=== PATIENT | female | born 1955 | race Caucasian/White ===

== ENCOUNTER 2017-08-20 22:52 | Emergency (ER) | payer MEDICARE, MEDICAID ==
[2017-08-20] MEDS ORDERED: Sodium Chloride 0.9% 1,000 ML IV ONE (23:22)
[2017-08-20] MEDS ORDERED: Ondansetron 4 MG/2 ML SDV IVPUSH ONE (23:22)
[2017-08-20] MEDS ORDERED: Ketorolac 30 MG/ML SDV IVPUSH ONE (23:22)
--- NOTE | 2017-08-20 23:25 | EDM.PDOC ---
ED HPI GENERAL MEDICAL PROBLEM - General Chief Complaint: Headache Stated Complaint: HEADACHE Time Seen by Provider: 08/20/17 23:24 Source of Information: Reports: Patient - History of Present Illness INITIAL COMMENTS - FREE TEXT/NARRATIVE: HISTORY AND PHYSICAL: History of present illness: []Patient presents with headache that has waxed and waned for 5 days currently rates 2 out of 10 but it increases to a 5 out of 10 maximally, she states she is under a lot of stress as she is now caring for her mother who has early Alzheimer's type dementia she feels this may contribute. I can reproduce some symptoms with palpation of trapezius distribution left greater than right no associated fever nausea vomiting diarrhea constipation chest pain shortness breath dizziness or palpitation no bowel or urine symptoms Review of systems: As per history of present illness and below otherwise all systems reviewed and negative. Past medical history: As per history of present illness and as reviewed below otherwise noncontributory. Surgical history: As per history of present illness and as reviewed below otherwise noncontributory. Social history: No reported history of drug or alcohol abuse. Family history: As per history of present illness and as reviewed below otherwise noncontributory. Physical exam: HEENT: Atraumatic, normocephalic, pupils reactive, negative for conjunctival pallor or scleral icterus, mucous membranes moist, throat clear, neck supple, nontender, trachea midline. Lungs: Clear to auscultation, breath sounds equal bilaterally, chest nontender. Heart: S1S2, regular, negative for clicks, rubs, or JVD. Abdomen: Soft, nondistended, nontender. Negative for masses or hepatosplenomegaly. Negative for costovertebral tenderness. Pelvis: Stable nontender. Genitourinary: Deferred. Rectal: Deferred. Extremities: Atraumatic, negative for cords or calf pain. Neurovascular unremarkable. Neuro: Awake, alert, oriented. Cranial nerves II through XII unremarkable. Cerebellum unremarkable. Motor and sensory unremarkable throughout. Exam nonfocal. Musculoskeletal reproducible muscle spasm and bilateral trapezius distribution left greater than right otherwise unremarkable Diagnostics: []CBC, CMP, UA, ESR Head CT no contrast Therapeutics: []Liter normal saline bolus Zofran 8 mg IV Toradol 30 mg IV Fioricet 1-2 tabs by mouth every 6 when necessary #30 no refill Impression: []Tension Headache Muscle spasm trapezius distribution Definitive disposition and diagnosis as appropriate pending reevaluation and review of above. 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: Psychiatric History: Reports: Anxiety Social & Family History - Family History Family Medical History: Noncontributory - Tobacco Use Smoking Status *Q: Current Every Day Smoker Years of Tobacco use: 40 Packs/Tins Daily: 1 - Caffeine Use Caffeine Use: Reports: Coffee, Soda Caffeine Use Comment: 1/2 cup daily - Recreational Drug Use Recreational Drug Use: No ED ROS GENERAL - Review of Systems Review Of Systems: See Below ED EXAM, GENERAL - Physical Exam Exam: See Below Course - Vital Signs Last Recorded V/S: Last Vital Signs Temp 36.4 C 08/20/17 22:52 Pulse 71 08/20/17 22:52 Resp 18 08/20/17 22:52 BP 163/108 H 08/20/17 22:52 Pulse Ox 100 08/20/17 22:52 - Orders/Labs/Meds Orders: Active Orders 24 hr Category Date Time Status Head wo Cont [CT] Stat Exams 08/20/17 23:24 Taken Labs: Laboratory Tests 08/21/17 08/21/17 08/21/17 Range/Units 00:01 00:09 00:09 WBC 5.60 (4.0-11.0) K/uL RBC 4.00 L (4.30-5.90) M/uL Hgb 12.7 (12.0-16.0) g/dL Hct 37.8 (36.0-46.0) % MCV 94.5 (80.0-98.0) fL MCH 31.8 (27.0-32.0) pg MCHC 33.6 (31.0-37.0) g/dL RDW Std Deviation 41.2 (28.0-62.0) fl RDW Coeff of Ayb 12 (11.0-15.0) % Plt Count 312 (150-400) K/uL MPV 9.30 (7.40-12.00) fL Neut % (Auto) 62.1 (48.0-80.0) % Lymph % (Auto) 26.6 (16.0-40.0) % [place] % (Auto) 9.5 (0.0-15.0) % Eos % (Auto) 1.6 (0.0-7.0) % Baso % (Auto) 0.2 (0.0-1.5) % Neut # (Auto) 3.5 (1.4-5.7) K/uL Lymph # (Auto) 1.5 (0.6-2.4) K/uL [place] # (Auto) 0.5 (0.0-0.8) K/uL Eos # (Auto) 0.1 (0.0-0.7) K/uL Baso # (Auto) 0.0 (0.0-0.1) K/uL ESR (0-29) mm/hr Sodium 142 (136-146) mmol/L Potassium 3.7 (3.5-5.1) mmol/L Chloride 107 (98-110) mmol/L Carbon Dioxide 24 (21-31) mmol/L BUN 14 (6.0-23.0) mg/dL Creatinine 0.8 (0.6-1.5) mg/dL Est Cr Clr Drug Dosing 70.90 mL/min Estimated GFR (MDRD) > 60.0 ml/min Glucose 80 (60-110) mg/dL Calcium 9.8 (8.8-10.8) mg/dL Total Bilirubin 0.3 (0.1-1.5) mg/dL AST 18 (5-40) IU/L ALT 14 (8-54) IU/L Alkaline Phosphatase 104 (40-150) Total Protein 8.0 (6.0-8.0) g/dL Albumin 4.5 (3.4-4.8) g/dL Globulin 3.5 (2.0-3.5) g/dL Albumin/Globulin Ratio 1.3 (1.3-2.8) Urine Color YELLOW Urine Appearance CLEAR Urine pH 5.5 (5.0-8.0) Ur Specific [place] <= 1.005 (1.001-1.035) Urine Protein NEGATIVE (NEGATIVE) mg/dL Urine Glucose (UA) NEGATIVE (NEGATIVE) mg/dL Urine Ketones NEGATIVE (NEGATIVE) mg/dL Urine Occult Blood NEGATIVE (NEGATIVE) Urine Nitrite NEGATIVE (NEGATIVE) Urine Bilirubin NEGATIVE (NEGATIVE) Urine Urobilinogen 0.2 (<2.0) EU/dL Ur Leukocyte Esterase NEGATIVE (NEGATIVE) Urine RBC 0-1 (0-2/HPF) Urine WBC 0-2 (0-5/HPF) Ur Epithelial Cells RARE (NONE-FEW) Urine Bacteria RARE (NEGATIVE) 08/21/17 Range/Units 00:09 WBC (4.0-11.0) K/uL RBC (4.30-5.90) M/uL Hgb (12.0-16.0) g/dL Hct (36.0-46.0) % MCV (80.0-98.0) fL MCH (27.0-32.0) pg MCHC (31.0-37.0) g/dL RDW Std Deviation (28.0-62.0) fl RDW Coeff of Aby (11.0-15.0) % Plt Count (150-400) K/uL MPV (7.40-12.00) fL Neut % (Auto) (48.0-80.0) % Lymph % (Auto) (16.0-40.0) % [place] % (Auto) (0.0-15.0) % Eos % (Auto) (0.0-7.0) % Baso % (Auto) (0.0-1.5) % Neut # (Auto) (1.4-5.7) K/uL Lymph # (Auto) (0.6-2.4) K/uL [place] # (Auto) (0.0-0.8) K/uL Eos # (Auto) (0.0-0.7) K/uL Baso # (Auto) (0.0-0.1) K/uL ESR 29 (0-29) mm/hr Sodium (136-146) mmol/L Potassium (3.5-5.1) mmol/L Chloride (98-110) mmol/L Carbon Dioxide (21-31) mmol/L BUN (6.0-23.0) mg/dL Creatinine (0.6-1.5) mg/dL Est Cr Clr Drug Dosing mL/min Estimated GFR (MDRD) ml/min Glucose (60-110) mg/dL Calcium (8.8-10.8) mg/dL Total Bilirubin (0.1-1.5) mg/dL AST (5-40) IU/L ALT (8-54) IU/L Alkaline Phosphatase (40-150) Total Protein (6.0-8.0) g/dL Albumin (3.4-4.8) g/dL Globulin (2.0-3.5) g/dL Albumin/Globulin Ratio (1.3-2.8) Urine Color Urine Appearance Urine pH (5.0-8.0) Ur Specific [place] (1.001-1.035) Urine Protein (NEGATIVE) mg/dL Urine Glucose (UA) (NEGATIVE) mg/dL Urine Ketones (NEGATIVE) mg/dL Urine Occult Blood (NEGATIVE) Urine Nitrite (NEGATIVE) Urine Bilirubin (NEGATIVE) Urine Urobilinogen (<2.0) EU/dL Ur Leukocyte Esterase (NEGATIVE) Urine RBC (0-2/HPF) Urine WBC (0-5/HPF) Ur Epithelial Cells (NONE-FEW) Urine Bacteria (NEGATIVE) Meds: Medications Discontinued Medications Generic Name Dose Route Start Last Admin Trade Name Freq PRN Reason Stop Dose Admin Sodium Chloride 1,000 mls @ 999 mls/hr 08/20/17 23:22 08/21/17 00:11 Normal Saline IV 08/21/17 00:22 999 mls/hr STAT ONE Administration Ketorolac Tromethamine 30 mg 08/20/17 23:22 08/21/17 00:12 Toradol IVPUSH 08/20/17 23:23 30 mg ONETIME ONE Administration Ondansetron HCl 8 mg 08/20/17 23:22 08/21/17 00:12 Zofran IVPUSH 08/20/17 23:23 8 mg ONETIME ONE Administration Departure - Departure Time of Disposition: 00:48 Disposition: Home, Self-Care 01 Condition: Good Clinical Impression: Tension-type headache - Discharge Information Referrals: PCP,None [Primary Care Provider] - Forms: ED Department Discharge Additional Instructions: Medication as prescribed Return if symptoms persist or worsen Follow-up with primary care in 2 weeks sooner as needed The following information is given to patients seen in the emergency department who are being discharged to home. This information is to outline your options for follow-up care. We provide all patients seen in our emergency department with a follow-up referral. The need for follow-up, as well as the timing and circumstances, are variable depending upon the specifics of your emergency department visit. If you don't have a primary care physician on staff, we will provide you with a referral. We always advise you to contact your personal physician following an emergency department visit to inform them of the circumstance of the visit and for follow-up with them and/or the need for any referrals to a consulting specialist. The emergency department will also refer you to a specialist when appropriate. This referral assures that you have the opportunity for follow-up care with a specialist. All of these measure are taken in an effort to provide you with optimal care, which includes your follow-up. Under all circumstances we always encourage you to contact your private physician who remains a resource for coordinating your care. When calling for follow-up care, please make the office aware that this follow-up is from your recent emergency room visit. If for any reason you are refused follow-up, please contact the [facility] emergency department at and asked to speak to the emergency department charge nurse. - My Orders Last 24 Hours: My Active Orders 08/20/17 23:24 Head wo Cont [CT] Stat - Assessment/Plan Last 24 Hours: My Active Orders 08/20/17 23:24 Head wo Cont [CT] Stat
[2017-08-21 00:37] LABS: CHLORIDE,CL 107 mmol/L (98-110); SODIUM,NA 142 mmol/L (136-146)
[2017-08-21 01:18] VITALS: BP 139/85
--- NOTE | 2017-08-22 18:12 | CT ---
EXAM DATE: 08/20/17 PATIENT'S AGE: 62 Patient: PARESH BUSCH Facility: [place], [place] Site . Site : 1955 Study: CT Head [id number] 11:59:10 PM Ordering Physician: Chad Blackwell Final Report: INDICATION: headache TECHNIQUE: CT Head without i.v. contrast. COMPARISON: None FINDINGS: CSF spaces: Within normal limits for age. Brain parenchyma: The brain parenchyma is normal in appearance with preservation of the leary-white matter junction. No sign of mass, hemorrhage, or midline shift. Skull base and calvarium: The visualized paranasal sinuses are well aerated. The mastoid air cells are clear. The visualized orbits are grossly unremarkable. No skull fractures are seen. IMPRESSION: 1. No CT evidence of acute infarct, hemorrhage, or mass effect seen. Dictated by: Laith Pierre MD @ 08/21/2017 00:06:55 (Electronic Signature) Report Signed by Proxy. ELMIRA
== END 2017-08-21 01:13 | disposition home or self-care (01) ==
LOC: MW.ED 22:52
DX: G44.209 Tension-type headache, unspecified, not intractable (principal); M62.838 Other muscle spasm; I10 Essential (primary) hypertension; F41.9 Anxiety disorder, unspecified; F17.210 Nicotine dependence, cigarettes, uncomplicated; Z79.899 Other long term (current) drug therapy
CPT/HCPCS: 70450; 80053; 81001; 85025; 85652; 96361; 96374; 96375; 99284; J1885; J2405; J7040; 99283

== ENCOUNTER 2021-07-27 13:26 | Emergency (ER) | payer MEDICAID, MEDICARE ==
[2021-07-27 15:15] VITALS: BP 145/91; PULSE 74
[2021-07-27 17:23] LABS: BLOOD UREA NITROGEN,BUN 14 mg/dL (7.0-18.0); CARBON DIOXIDE,CO2 30.7 mmol/L (21.0-32.0); CHLORIDE,CL 101 mmol/L (98-107); GLUCOSE RANDOM 89 mg/dL (74-106); POTASSIUM,K 4.3 mmol/L (3.5-5.1); SODIUM,NA 139 mmol/L (136-145)
--- NOTE | 2021-07-27 17:42 | CR ---
Indication: Chest pain and shortness of breath Technique: Chest 2 views Comparison: None Findings: Cardiovascular and mediastinum: Mild cardiomegaly. Normal pulmonary vasculature. Lungs and pleural spaces: Lungs are clear. No sign of infiltrate or mass. No sign of pleural effusion. No pneumothorax. Bones and soft tissues: No significant findings. Impression: Mild cardiomegaly without further evidence of heart failure or other acute abnormality to explain chest pain or shortness of breath. Dictated by Davey Trinh MD @ 07/27/2021 5:40:[address] Davey Trinh @ Jul 27 2021 5:40PM
--- NOTE | 2021-07-27 18:43 | EDM.PDOC ---
ED HPI GENERAL MEDICAL PROBLEM - General Chief Complaint: Respiratory Problem Stated Complaint: BODY ACHES, COVID SYMPTOMS Time Seen by Provider: 07/27/21 16:07 Source of Information: Reports: Patient History Limitations: Reports: No Limitations - History of Present Illness INITIAL COMMENTS - FREE TEXT/NARRATIVE: HISTORY AND PHYSICAL: History of present illness: Patient is a 66-year-old female who presents emergency room today with concern of possible COVID-19 infection as she has been having a stuffy/runny nose and cough for the past 5 days. Patient states that initially started as a stuffy/runny nose and states that she has developed a "junky cough "now over the past 3 to 4 days. Patient states that she was talking to a friend about it who stated she might have COVID-19 so patient decided to come the emergency room for further evaluation. Patient denies any associated short of breath but states that she has had some generalized body aches. Patient states that she has a history of rheumatoid arthritis and states that she has body aches at baseline so has had a hard time differentiating this. Patient denies any other symptoms or concerns. Patient denies fever, chills, chest pain, shortness of breath, or cough. Denies headache, neck stiff ness, change in vision, syncope, or near syncope. Denies nausea, vomiting, abdominal pain, diarrhea, constipation, or dysuria. Has not noted any blood in urine or stool. Patient has been eating and drinking appropriately. Review of systems: As per history of present illness and below otherwise all systems reviewed and negative. Past medical history: As per history of present illness and as reviewed below otherwise noncontributory. Surgical history: As per history of present illness and as reviewed below otherwise noncontributory. Social history: See social history for further information Family history: As per history of present illness and as reviewed below otherwise noncontributory. Physical exam: General: Patient is alert, oriented, and in no acute distress. Patient sitting comfortably on exam table. Vitals stable and reviewed by me. HEENT: Bilateral nasal congestion/runny nose. Otherwise, atraumatic, normocephalic, pupils equal and reactive bilaterally, negative for conjunctival pallor or scleral icterus, mucous membranes moist, TMs normal bilaterally, throat clear, neck supple, nontender, trachea midline. No drooling or trismus noted. No meningeal signs. No hot potato voice noted. Lungs: Clear to auscultation, breath sounds equal bilaterally, chest nontender. Wet cough noted on exam. Heart: S1S2, regular rate and rhythm without overt murmur Abdomen: Soft, nondistended, nontender. Negative for masses or hepatosplenomegaly. Negative for costovertebral tenderness. Pelvis: Stable nontender. Genitourinary: Deferred. Rectal: Deferred. Skin: Intact, warm, dry. No lesions or rashes noted. Extremities: Atraumatic, negative for cords or calf pain. Neurovascular unremarkable. Neuro: Awake, alert, oriented. Cranial nerves II through XII unremarkable. Cerebellum unremarkable. Motor and sensory unremarkable throughout. Exam nonfocal. Notes: Patient is a 66-year-old female who presents emergency room today with concern of nasal congestion, generalized body aches, and cough over the past 5 days. Upon arrival to the ED, patient does have bilateral nasal congestion and runny nose on exam with a wet cough. Will obtain COVID-19/influenza as well as basic lab work and chest x-ray. Mild derangements of CBC unremarkable. CMP show an isolated elevation of alk phos at 133 which nonspecific in isolation, otherwise mild derangements of CMP unremarkable. COVID-19 is negative. Influenza is negative. Chest x-ray shows mild cardiomegaly without further evidence of heart failure or other acute abnormality to explain chest pain or shortness of breath. (Will obtain BNP) BNP mildly elevated at 137. Upon reevaluation of patient, she remains vitally stable and comfortable thr oughout stay in ED. Reexamination of patient shows no bilateral lower extremity edema or orthopnea/JVD. I did discuss with patient the possibility of new onset/early congestive heart failure and did offer admission for observation / complete cardiac evaluation (EKG/Trop) but patient declines stating she is eager to leave the ED as she has been here for quite some time. All risks versus benefits discussed with patient and expresses understanding. Discussed importance for follow-up with a primary care provider/industrial order clerk. Strict return precautions thoroughly discussed with patient. Voices understanding and is agreeable to plan of care. Denies any further questions or concerns at this time. Diagnostics: COVID/Flu, CBC, CMP, CXR, BNP Therapeutics: None Prescription: None Impression: Cough Viral syndrome Mild cardiomegaly on chest x-ray Plan: 1. You can alternate ibuprofen and Tylenol as directed for pain and discomfort. 2. Use [id number] cough drops as directed and as discussed for symptomatic relief. 3. Follow-up with a primary care provider and industrial order clerk as discussed. Return to the ED as needed and as discussed. Definitive disposition and diagnosis as appropriate pending reevaluation and review of above. Location: Reports: Pelvis general Pain Score (Numeric/FACES): 10 - Related Data Allergies Allergy/AdvReac Type Severity Reaction Status Date / Time No Known Allergies Allergy Verified 08/20/17 22:57 Home Meds: Home Meds Venlafaxine [Effexor XR] 225 mg PO DAILY 08/20/17 [History] amLODIPine [Norvasc] 0 mg PO DAILY 08/20/17 [History] Furosemide 10 mg PO DAILY 07/27/21 [History] Past Medical History - Past Health History Medical/Surgical History: Denies Medical/Surgical History HEENT History: Reports: Impaired Vision Other HEENT History: wears glasses Cardiovascular History: Reports: Hypertension [employer]ST[employer]ER History: Reports: Psychiatric History: Reports: Anxiety - Infectious Disease History Infectious Disease History: Reports: Chicken Pox Social & Family History - Family History Family Medical History: No Pertinent Family History - Caffeine Use Caffeine Use: Reports: Coffee, Soda Caffeine Use Comment: 1/2 cup daily - Recreational Drug Use Recreational Drug Type: Reports: Marijuana/Hashish ED ROS GENERAL - Review of Systems Review Of Systems: Comprehensive ROS is negative, except as noted in HPI. ED EXAM, GENERAL - Physical Exam Exam: See Below (see dictation) Course - Vital Signs Last Recorded V/S: Last Vital Signs Temp 98.4 F 07/27/21 15:05 Pulse 74 07/27/21 15:05 Resp 20 07/27/21 15:17 BP 145/91 H 07/27/21 15:05 Pulse Ox 92 L 07/27/21 15:05 - Orders/Labs/Meds Labs: Laboratory Tests 07/27/21 07/27/21 07/27/21 Range/Units 14:55 15:02 16:55 WBC 6.53 (4.0-11.0) K/uL RBC 4.14 L (4.30-5.90) M/uL Hgb 12.4 (12.0-16.0) g/dL Hct 36.9 (36.0-46.0) % MCV 89.1 (80.0-98.0) fL MCH 30.0 (27.0-32.0) pg MCHC 33.6 (31.0-37.0) g/dL RDW Std Deviation 39.8 (28.0-62.0) fl RDW Coeff of [place] 12 (11.0-15.0) % Plt Count 366 (150-400) K/uL MPV 9.40 (7.40-12.00) fL Neut % (Auto) 64.1 (48.0-80.0) % Lymph % (Auto) 25.0 (16.0-40.0) % [place] % (Auto) 8.6 (0.0-15.0) % Eos % (Auto) 2.0 (0.0-7.0) % Baso % (Auto) 0.3 (0.0-1.5) % Neut # (Auto) 4.2 (1.4-5.7) K/uL Lymph # (Auto) 1.6 (0.6-2.4) K/uL [place] # (Auto) 0.6 (0.0-0.8) K/uL Eos # (Auto) 0.1 (0.0-0.7) K/uL Baso # (Auto) 0.0 (0.0-0.1) K/uL Nucleated RBC % 0.0 /100WBC Nucleated RBCs # 0 K/uL Sodium (136-145) mmol/L Potassium (3.5-5.1) mmol/L Chloride (98-107) mmol/L Carbon Dioxide (21.0-32.0) mmol/L BUN (7.0-18.0) mg/dL Creatinine (0.6-1.0) mg/dL Est Cr Clr Drug Dosing Estimated GFR (MDRD) ml/min Glucose (74-106) mg/dL Calcium (8.5-10.1) mg/dL Total Bilirubin (0.2-1.0) mg/dL AST (15-37) IU/L ALT (14-63) IU/L Alkaline Phosphatase (46-116) U/L B-Natriuretic Peptide 137 H (<100) PG/ML Total Protein (6.4-8.2) g/dL Albumin (3.4-5.0) g/dL Globulin (2.6-4.0) g/dL Albumin/Globulin Ratio (0.9-1.6) SARS-CoV-2 RNA (GEOVANNI) NEGATIVE (NEGATIVE) 07/27/21 Range/Units 16:55 WBC (4.0-11.0) K/uL RBC (4.30-5.90) M/uL Hgb (12.0-16.0) g/dL Hct (36.0-46.0) % MCV (80.0-98.0) fL MCH (27.0-32.0) pg MCHC (31.0-37.0) g/dL RDW Std Deviation (28.0-62.0) fl RDW Coeff of Aby (11.0-15.0) % Plt Count (150-400) K/uL MPV (7.40-12.00) fL Neut % (Auto) (48.0-80.0) % Lymph % (Auto) (16.0-40.0) % [place] % (Auto) (0.0-15.0) % Eos % (Auto) (0.0-7.0) % Baso % (Auto) (0.0-1.5) % Neut # (Auto) (1.4-5.7) K/uL Lymph # (Auto) (0.6-2.4) K/uL [place] # (Auto) (0.0-0.8) K/uL Eos # (Auto) (0.0-0.7) K/uL Baso # (Auto) (0.0-0.1) K/uL Nucleated RBC % /100WBC Nucleated RBCs # K/uL Sodium 139 (136-145) mmol/L Potassium 4.3 (3.5-5.1) mmol/L Chloride 101 (98-107) mmol/L Carbon Dioxide 30.7 (21.0-32.0) mmol/L BUN 14 (7.0-18.0) mg/dL Creatinine 0.8 (0.6-1.0) mg/dL Est Cr Clr Drug Dosing TNP Estimated GFR (MDRD) > 60.0 ml/min Glucose 89 (74-106) mg/dL Calcium 8.9 (8.5-10.1) mg/dL Total Bilirubin 0.3 (0.2-1.0) mg/dL AST 15 (15-37) IU/L ALT 18 (14-63) IU/L Alkaline Phosphatase 133 H (46-116) U/L B-Natriuretic Peptide (<100) PG/ML Total Protein 8.0 (6.4-8.2) g/dL Albumin 3.7 (3.4-5.0) g/dL Globulin 4.3 H (2.6-4.0) g/dL Albumin/Globulin Ratio 0.9 (0.9-1.6) SARS-CoV-2 RNA (GEOVANNI) (NEGATIVE) Departure - Departure Time of Disposition: 18:42 Disposition: Home, Self-Care 01 Clinical Impression: Cough, Viral syndrome, Mild cardiomegaly - Discharge Information Instructions: Cough, Adult, [id number] Referrals: Sade He DO [Primary Care Provider] - Forms: ED Department Discharge Additional Instructions: The following information is given to patients seen in the emergency department who are being discharged to home. This information is to outline your options for follow-up care. We provide all patients seen in our emergency department with a follow-up referral. The need for follow-up, as well as the timing and circumstances, are variable depending upon the specifics of your emergency department visit. If you don't have a primary care physician on staff, we will provide you with a referral. We always advise you to contact your personal physician following an emergency department visit to inform them of the circumstance of the visit and for follow-up with them and/or the need for any referrals to a consulting specialist. The emergency department will also refer you to a specialist when appropriate. This referral assures that you have the opportunity for follow-up care with a specialist. All of these measure are taken in an effort to provide you with optimal care, which includes your follow-up. Under all circumstances we always encourage you to contact your private physician who remains a resource for coordinating your care. When calling for follow-up care, please make the office aware that this follow-up is from your recent emergency room visit. If for any reason you are refused follow-up, please contact the [facility] Emergency Department at and asked to speak to the emergency department charge nurse. YOSEPH [facility] Primary Care / Cardiology [address] [place] [address] [facility] [address] [place] [id number] 1. You can alternate ibuprofen and Tylenol as directed for pain and discomfort. 2. Use [id number] cough drops as directed and as discussed for symptomatic relief. 3. Follow-up with a primary care provider and industrial order clerk as discussed. Return to the ED as needed and as discussed. Sepsis Event Note (ED) - Evaluation Sepsis Screening Result: No Definite Risk - Focused Exam Vital Signs: Vital Signs Temp Pulse Resp BP Pulse Ox 07/27/21 15:17 20 07/27/21 15:05 98.4 F 74 20 145/91 H 92 L
== END 2021-07-27 19:01 | disposition home or self-care (01) ==
LOC: MW.ED 13:26
DX: B34.9 Viral infection, unspecified (principal); I51.7 Cardiomegaly; I10 Essential (primary) hypertension; Z79.899 Other long term (current) drug therapy; Z20.822 Contact with and (suspected) exposure to COVID-19
CPT/HCPCS: 36415; 71046; 80053; 83880; 85025; 87804; 99283; U0002

== ENCOUNTER 2021-07-31 20:11 | Emergency (ER) | payer MEDICARE ==
[2021-07-31 23:12] VITALS: PULSE 68
--- NOTE | 2021-07-31 23:41 | EDM.PDOC ---
ED HPI GENERAL MEDICAL PROBLEM - General Chief Complaint: General Stated Complaint: WAS TOLD TO COME IN BY HER DR Time Seen by Provider: 07/31/21 23:13 - History of Present Illness INITIAL COMMENTS - FREE TEXT/NARRATIVE: HISTORY AND PHYSICAL: History of present illness: This is a 66-year-old female who presents ER today secondary to a flareup of her rheumatoid arthritis all throughout her body. Patient reports that the pain is greatest in her right knee where her right knee is swollen. She reports that she spoke to her doctor and her doctor had her come back to the ED for an ultrasound. Patient denies any recent fevers, shakes, chills, nausea, vomiting, diarrhea, dysuria, frequency, urgency, chest pain, shortness of breath. Patient reports that she used to be on methotrexate however she stopped it approximately 1 1/2 years ago and was doing well up until 3 weeks ago when she started experiencing body aches and joint pain throughout her joints. She reports that she does care for her 9-month-old granddaughter and thinks that that might of exacerbated things. Patient was seen and evaluated here several days ago secondary to concern that she might have Covid however her work-up was negative. Patient denies any swelling to her lower extremity however she does have swelling isolated to her right knee. 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 Patient denies any recent fevers, shakes, chills, nausea, vomiting, diarrhea, dysuria, frequency, urgency, chest pain, shortness of breath, abdominal pain. Review of systems: As per history of present illness and below otherwise all systems reviewed and negative. Past medical history: As per history of present illness and as reviewed below otherwise noncontributory. Surgical history: As per history of present illness and as reviewed below otherwise noncontributory. Social history: No reported history of drug abuse. Family history: As per history of present illness and as reviewed below otherwise noncon tributory. Physical exam: This patient was seen and evaluated during the 2019 SARS-CoV-2 novel coronavirus pandemic period. Community viral transmission is ongoing at time of this encounter and the emergency department is operating under pandemic response procedures. Constitutional: Patient is oriented to person, place, and time. Appears well- developed and well-nourished. No distress. HEENT: Moist mucous membranes Head: Normocephalic and atraumatic Eyes: Right eye exhibits no discharge. Left eye exhibits no discharge. No scleral icterus Neck: Normal range of motion. No tracheal deviation present. Cardiovascular: Normal rate and regular rhythm. Pulmonary: Effort normal, no respiratory distress. Abdominal: No distention Musculoskeletal: Normal range of motion Neurologic: Alert and oriented to person, place and time. Skin: [place], warm and dry. Psychiatric: Normal mood and affect. Behavior is normal. Judgment and thought content normal. Nursing note and vital signs have been reviewed Patient has tenderness to palpation to her right knee with a right knee joint effusion. Patient does have 2 Lidoderm patches over her knees and she reports that they have not helped her very much. Patient has no calf tenderness, pedal edema, negative Homans' sign. Patient has bounding pulses bilaterally to her DP/PTs. Assessment and plan: 66-year-old female with history significant for rheumatoid arthritis who used to be on methotrexate but has recently stopped it approximately 1/2 years ago and reports she was doing fine. Patient reports approximate 3 weeks ago she started feeling body aches and pain to all her joints consistent with a flareup of her rheumatoid arthritis. Patient reports that for 3 weeks you have been calling the clinic with no answer to get into see her doctor. Patient reports that she does have an appointment on August 06. Patient's ER physical exam today is not consistent with a DVT. I have discussed with her that we do not have access to nonemergent ultrasonography at nights or weekends here at [facility] and I do not think that her symptoms would warrant initiating anticoagulation therapy prior to further evaluation. I have recommended that she follow-up with her doctor to see if her doctor would want to order it as an outpatient for her or she may return to the ED Tuesday through 08-02 for a nonemergent ultrasound. It appears that the patient symptoms are most consistent with a flareup of her rheumatoid arthritis. I will start the patient on NSAIDs as well as Ultram to assist her with her pain and discomfort. Reassessment at the time of disposition demonstrates that the patient is in no acute distress. The patient has remained stable throughout the entire ED visit and is without objective evidence for acute process requiring urgent intervention or hospitalization. The patient is stable for discharge, counseling is provided as documented above, discussed symptomatic treatment and specific conditions for return. I have spoken with the patient/caregiver and discussed todays findings, in addition to providing specific details for the plan of care. Questions are answered and there is agreement with the plan. Definitive disposition and diagnosis as appropriate pending reevaluation and review of above. right knee Pain Score (Numeric/FACES): 10 - Related Data Allergies Allergy/AdvReac Type Severity Reaction Status Date / Time No Known Allergies Allergy Verified 07/31/21 23:07 Home Meds: Home Meds Venlafaxine [Effexor XR] 225 mg PO DAILY 08/20/17 [History] amLODIPine [Norvasc] 0 mg PO DAILY 08/20/17 [History] Furosemide 10 mg PO DAILY 07/27/21 [History] Naproxen [Naprosyn] 500 mg PO Q12HR PRN #30 tab 07/31/21 [Rx] atorvaSTATin [Lipitor] 20 mg PO BEDTIME 07/31/21 [History] traMADol [Ultram] 50 mg PO Q6H PRN #12 tab 07/31/21 [Rx] Past Medical History - Past Health History Medical/Surgical History: Denies Medical/Surgical History HEENT History: Reports: Impaired Vision Other HEENT History: wears glasses Cardiovascular History: Reports: High Cholesterol, Hypertension Respiratory History: Reports: None Gastrointestinal History: Reports: None Genitourinary History: Reports: None GARDENER History: Reports: Musculoskeletal History: Reports: None Neurological History: Reports: None Psychiatric History: Reports: Anxiety, Depression Endocrine/Metabolic History: Reports: None Insulin Pump Model and Unit Aid: None Hematologic History: Reports: None Immunologic History: Reports: None Oncologic (Cancer) History: Reports: None Dermatologic History: Reports: None - Infectious Disease History Infectious Disease History: Reports: Chicken Pox - Past Surgical History Head Surgeries/Procedures: Reports: None Social & Family History - Family History Family Medical History: No Pertinent Family History - Caffeine Use Caffeine Use: Reports: Soda Caffeine Use Comment: 1/2 cup daily - Recreational Drug Use Recreational Drug Use: No ED ROS GENERAL - Review of Systems Review Of Systems: See Below ED EXAM, GENERAL - Physical Exam Exam: See Below Course - Vital Signs Last Recorded V/S: Last Vital Signs Temp 97.4 F 07/31/21 23:09 Pulse 68 07/31/21 23:09 Resp 18 07/31/21 23:09 BP 167/97 H 09/03/21 23:09 Pulse Ox 98 07/31/21 23:09 - Orders/Labs/Meds Orders: Active Orders 24 hr Category Date Time Status Knee 3V Rt [CR] Stat Exams 07/31/21 23:23 Stop Req Departure - Departure Time of Disposition: 23:39 Disposition: Home, Self-Care 01 Condition: Good Clinical Impression: Rheumatoid arthritis flare Rheumatoid arthritis Qualifiers: Rheumatoid arthritis location: knee Rheumatoid factor presence: unspecified pr esence Laterality: right Qualified Code(s): M06.9 - Rheumatoid arthritis, unspecified Right knee pain Qualifiers: Chronicity: unspecified Qualified Code(s): M25.561 - Pain in right knee - Discharge Information Instructions: Rheumatoid Arthritis, [id number], Acute Knee Pain, Adult Referrals: PCP,None [Primary Care Provider] - Additional Instructions: You were seen and evaluated in the ER today secondary to pain and swelling to your right knee. This is most likely consistent with flareup of your rheumatoid arthritis. You will get started on Naprosyn as well as Ultram to assist you with your pain and discomfort. Please keep your appointment on August 06 to see your family doctor for further evaluation and management of your pain. The following information is given to patients seen in the emergency department who are being discharged to home. This information is to outline your options for follow-up care. We provide all patients seen in our emergency department with a follow-up referral. The need for follow-up, as well as the timing and circumstances, are variable depending upon the specifics of your emergency department visit. If you don't have a primary care physician on staff, we will provide you with a referral. We always advise you to contact your personal physician following an emergency department visit to inform them of the circumstance of the visit and for follow-up with them and/or the need for any referrals to a consulting specialist. The emergency department will also refer you to a specialist when appropriate. This referral assures that you have the opportunity for follow-up care with a specialist. All of these measure are taken in an effort to provide you with optimal care, which includes your follow-up. Under all circumstances we always encourage you to contact your private physician who remains a resource for coordinating your care. When calling for follow-up care, please make the office aware that this follow-up is from your recent emergency room visit. If for any reason you are refused follow-up, please contact the [facility] Emergency Department at and asked to speak to the emergency department charge nurse. Carlos Kaci [facility] - [facility] [address] [place] [id number] [facility] [address] [place] [id number] Sepsis Event Note (ED) - Focused Exam Vital Signs: Vital Signs Temp Pulse Resp BP Pulse Ox 07/31/21 23:09 97.4 F 68 18 167/97 H 98 - My Orders Last 24 Hours: My Active Orders 07/31/21 23:23 Knee 3V Rt [CR] Stat - Assessment/Plan Last 24 Hours: My Active Orders 07/31/21 23:23 Knee 3V Rt [CR] Stat
[2021-08-01] MEDS ORDERED: Naproxen 500 MG Tab PO ONE (00:17)
[2021-08-01] MEDS ORDERED: traMADol 50 MG Tab PO ONE (00:17)
[2021-08-01 02:31] VITALS: BP 157/89
--- NOTE | 2021-08-04 09:26 | CR ---
EXAM DATE: 07/31/21 PATIENT'S AGE: 66 Patient: PARESH BUSCH Facility: [facility] Site . Site : [id number] Study: XRay-Knee Right -08/01/2021 12:12:45 AM Ordering Physician: Meet Kline Final Report: INDICATION: Pain in knee TECHNIQUE: Knee radiograph 4 views right COMPARISON: None FINDINGS: Bone: No acute fractures or aggressive bone lesions are identified. 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 No significant knee effusion is seen. Soft tissue: Unremarkable. No radiopaque foreign bodies are seen. IMPRESSION: 1. No acute osseous injuries or abnormalities are noted. Dictated by Laith Pierre MD @ 08/01/2021 12:27:10 AM Dictated by: Laith Pierre MD @ 08/01/2021 00:27:15 Signed by: Laith Pierre MD @08/01/2021 12:27:15 AM (Electronic Signature) Report Signed by Proxy. ELMIRA
== END 2021-08-01 00:20 | disposition home or self-care (01) ==
LOC: MW.ED 20:11
DX: M06.9 Rheumatoid arthritis, unspecified (principal); E78.00 Pure hypercholesterolemia, unspecified; I10 Essential (primary) hypertension; Z79.899 Other long term (current) drug therapy
CPT/HCPCS: 73562; 99283; A9270

== ENCOUNTER 2021-09-07 17:10 | Inpatient (IN) | payer MEDICARE ==
--- NOTE | 2021-09-07 17:55 | EDM.PDOC ---
<Librado Smart - Last Filed: 09/07/21 19:09> ED HPI GENERAL MEDICAL PROBLEM - General Chief Complaint: Respiratory Problem Stated Complaint: COVID POS, LOW OXYGEN Time Seen by Provider: 09/07/21 17:36 - History of Present Illness INITIAL COMMENTS - FREE TEXT/NARRATIVE: CHIEF COMPLAINT(S): Fatigue HISTORY OF PRESENT ILLNESS: This is a 66-year-old woman with a past medical history of rheumatoid arthritis and hypertension who comes to the emergency department with a chief complaint of fatigue. The patient states that she was diagnosed with Covid approximately 5 days ago and she comes to the emergency department at the request of her clinic. She states that they sent her here for IV fluids. She states that since being diagnosed with Covid she has had worsening cough and fatigue. She states that she does feel mildly short of breath. She denies any chest pain abdominal pain, nausea or vomiting. She states that she does have decreased appetite. She denies any other symptoms. REVIEW OF SYSTEMS: Constitutional: Positive for fatigue. Denies fever, chills. Eyes: Denies eye pain Ears, Nose, Mouth, & Throat: Denies earache Cardiovascular: Denies chest pain Respiratory: Positive for nonproductive cough. Denies shortness of breath Gastrointestinal: Denies Nausea, vomiting, diarrhea, hematochezia. Genitourinary: Denies hematuria Skin:Denies a rash MSK: Denies joint pain Neurological: Denies blurred vision Psychiatric: Denies depression PAST MEDICAL HISTORY: As per history of present illness and as reviewed below otherwise noncontributory. SURGICAL HISTORY: As per history of present illness and as reviewed below otherwise noncontributory. SOCIAL HISTORY: As per history of present illness and as reviewed below otherwise noncontributory. FAMILY HISTORY: As per history of present illness and as reviewed below otherwise noncontributory. EXAMINATION OF ORGAN SYSTEMS/BODY AREAS: Constitutional: Blood pressure is 137/74, heart rate 88, respiratory rate 20 with an oxygen saturation of 88% on room air. Temperature 36.6. 2 L nasal cannula pulse oximetry was 92 to 93%. General: Middle-aged woman who does not appear to be in acute distress. Psychiatric: Appropriate mood and affect. Eyes: No scleral icterus or conjunctival erythema ENMT: Moist mucous membranes. No pharyngeal erythema Cardiovascular: Regular, rate, and rhythm. No gallops, murmurs, or rubs. Bila teral upper extremity pulses symmetric and intact. No peripheral edema. No JVD. Respiratory: Lungs clear to auscultation bilaterally. No wheezes, rales, or rhonchi. Gastrointestinal: Soft, non-tender, non-distended. Normoactive bowel sounds Genitourinary: No suprapubic tenderness Musculoskeletal: Normal range of motion. Skin: No lesions or abrasions. Neurological: Alert, GCS 15 MEDICAL DECISION MAKING AND COURSE IN THE ED WITH INTERPRETATION/REVIEW OF DIAGNOSTIC STUDIES: This is a 66-year-old woman with a past medical history of rheumatoid arthritis and hypertension who comes to the emergency department with cough, fatigue who is hypoxic on room air who appears to be in no acute distress. At this time we did obtain a screening EKG which did not reveal any acute signs of ischemia but did reveal a right bundle branch block. There are no priors to compare to. Given the hypoxia and right bundle branch block will obtain a CT angiogram of the chest to evaluate for pulmonary embolism. We did place the patient on cardiac monitoring and pulse oximetry. Will obtain labs including CBC, CMP, troponin. Will obtain a chest x-ray. We will provide the patient 1 L of lactated Ringer's bolus. Laboratory: CBC reveals a normocytic anemia with a hemoglobin of 10.8 hematocrit of 33.2. This is decreased from prior on 07/27/2021. CMP is unremarkable. Prior Covid on September 03, 2021 is positive. On reevaluation patient continues remain comfortable. The patient states that she has not been having any bloody bowel movements or black bowel movements. Patient was signed out to [facility] night team physician pending further labs and work-up and final disposition. DISPOSITION: Patient was signed out to [facility] night team physician pending further labs and final disposition CONDITION: Fair PROCEDURES: Cardiac monitoring interpretation, pulse oximetry interpretation FINAL IMPRESSION(S)/DIAGNOSES: 1. Acute hypoxic respiratory failure requiring nasal cannula secondary to COVID-19 2. Acute normocytic anemia Librado Smart M.D. Generalized Pain Score (Numeric/FACES): 8 - Related Data Allergies Allergy/AdvReac Type Severity Reaction Status Date / Time No Known Allergies Allergy Verified 09/07/21 17:24 Home Meds: Home Meds Venlafaxine [Effexor XR] 225 mg PO DAILY 08/20/17 [History] amLODIPine [Norvasc] 0 mg PO DAILY 08/20/17 [History] Furosemide 10 mg PO DAILY 07/27/21 [History] Past Medical History - Past Health History Medical/Surgical History: Denies Medical/Surgical History HEENT History: Reports: Impaired Vision Other HEENT History: wears glasses Cardiovascular History: Reports: High Cholesterol, Hypertension Respiratory History: Reports: None Gastrointestinal History: Reports: None Genitourinary History: Reports: None PROFESSOR OF FORESTRY History: Reports: Musculoskeletal History: Reports: None Neurological History: Reports: None Psychiatric History: Reports: Anxiety, Depression Endocrine/Metabolic History: Reports: None Insulin Pump Model and Radiographer Technologist: None Hematologic History: Reports: None Immunologic History: Reports: None Oncologic (Cancer) History: Reports: None Dermatologic History: Reports: None - Infectious Disease History Infectious Disease History: Reports: Chicken Pox - Past Surgical History Head Surgeries/Procedures: Reports: None Social & Family History - Family History Family Medical History: No Pertinent Family History - Tobacco Use Tobacco Use Status *Q: Current Every Day Tobacco User Years of Tobacco use: 45 Packs/Tins Daily: 0.2 - Caffeine Use Caffeine Use: Reports: Soda Caffeine Use Comment: 1/2 cup daily - Recreational Drug Use Recreational Drug Use: No Departure - Departure Disposition: Admitted As Inpatient 66 Clinical Impression: Hypoxia, COVID-19 - Discharge Information Referrals: Preston Gann MD [Primary Care Provider] - Forms: ED Department Discharge <Ricki Turner - Last Filed: 09/07/21 20:20> ED ROS GENERAL - Review of Systems Review Of Systems: See Below ED EXAM, GENERAL - Physical Exam Exam: See Below Course - Vital Signs Last Recorded V/S: Last Vital Signs Temp 97.9 F 09/07/21 17:20 Pulse 73 09/07/21 19:21 Resp 23 H 09/07/21 19:21 BP 119/61 09/07/21 19:21 Pulse Ox 94 L 09/07/21 18:20 - Orders/Labs/Meds Orders: Active Orders 24 hr Category Date Time Status Cardiac Monitoring [RC] . DIRECTED Care 09/07/21 18:02 Active Pulse Oximetry [RC] ASDIRECTED Care 09/07/21 18:02 Active Ang Chest [CT] Stat Exams 09/07/21 18:17 Ordered CORONAVIRUS COVID-19 GEOVANNI [MOLEC] Stat Lab 09/07/21 19:57 Ordered Lactated Ringers [Ringers, Lactated] 1,000 ml Med 09/07/21 18:30 Active IV ASDIRECTED Medication Orders Lactated Ringer's (Ringers, Lactated) 1,000 mls @ 999 mls/hr IV ASDIRECTED NIKKO Last Admin: 09/07/21 18:28 Dose: 999 mls/hr Documented by: BENI Labs: Laboratory Tests 09/07/21 09/07/21 Range/Units 18:26 18:26 WBC 5.85 (4.0-11.0) K/uL RBC 3.61 L (4.30-5.90) M/uL Hgb 10.8 L (12.0-16.0) g/dL Hct 33.2 L (36.0-46.0) % MCV 92.0 (80.0-98.0) fL MCH 29.9 (27.0-32.0) pg MCHC 32.5 (31.0-37.0) g/dL RDW Std Deviation 42.5 (28.0-62.0) fl RDW Coeff of Aby 13 (11.0-15.0) % Plt Count 301 (150-400) K/uL MPV 9.30 (7.40-12.00) fL Neut % (Auto) 81.8 H (48.0-80.0) % Lymph % (Auto) 10.6 L (16.0-40.0) % [place] % (Auto) 7.4 (0.0-15.0) % Eos % (Auto) 0.2 (0.0-7.0) % Baso % (Auto) 0.0 (0.0-1.5) % Neut # (Auto) 4.8 (1.4-5.7) K/uL Lymph # (Auto) 0.6 (0.6-2.4) K/uL [place] # (Auto) 0.4 (0.0-0.8) K/uL Eos # (Auto) 0.0 (0.0-0.7) K/uL Baso # (Auto) 0.0 (0.0-0.1) K/uL Sodium 138 (136-145) mmol/L Potassium 4.1 (3.5-5.1) mmol/L Chloride 100 (98-107) mmol/L Carbon Dioxide 29.6 (21.0-32.0) mmol/L BUN 11 (7.0-18.0) mg/dL Creatinine 0.8 (0.6-1.0) mg/dL Est Cr Clr Drug Dosing 67.27 mL/min Estimated GFR (MDRD) > 60.0 ml/min Glucose 109 H (74-106) mg/dL Calcium 7.9 L (8.5-10.1) mg/dL Total Bilirubin 0.3 (0.2-1.0) mg/dL AST 26 (15-37) IU/L ALT 14 (14-63) IU/L Alkaline Phosphatase 101 (46-116) U/L Troponin I < 0.050 (0.000-0.056) ng/mL Total Protein 6.5 (6.4-8.2) g/dL Albumin 2.6 L (3.4-5.0) g/dL Globulin 3.9 (2.6-4.0) g/dL Albumin/Globulin Ratio 0.7 L (0.9-1.6) Meds: Medications Generic Name Dose Route Start Last Admin Trade Name Freq PRN Reason Stop Dose Admin Lactated Ringer's 1,000 mls @ 999 mls/hr 09/07/21 18:30 09/07/21 18:28 Ringers, Lactated IV 999 mls/hr ASDIRECTED NIKKO Administration - Re-Assessments/Exams Free Text/Narrative Re-Assessment/Exam: 09/07/21 20:19 Patient sound to me from previous provider. Patient pending CT PE but will be admitted for hypoxia likely due to Covid if she is on nasal cannula 2 L satting greater than 97%. Departure - Departure Time of Disposition: 20:20 Condition: Good Critical Care Note - Critical Care Note Total Time (mins): 45 Comments: Critical Care Procedure Note Authorized and Performed by: Dr. Turner Total critical care time: Approximately Due to a high probability of clinically significant, life threatening deterioration, the patient required my highest level of preparedness to intervene emergently and I personally spent this critical care time directly and personally managing the patient. This critical care time included obtaining a history; examining the patient; pulse oximetry; ordering and review of studies; arranging urgent treatment with development of a management plan; evaluation of patient's response to treatment; frequent reassessment; and, discussions with other providers. This critical care time was performed to assess and manage the high probability of imminent, life-threatening deterioration that could result in multi-organ failure. It was exclusive of separately billable procedures and treating other patients and teaching time. Sepsis Event Note (ED) - Focused Exam Vital Signs: Vital Signs Temp Pulse Resp BP Pulse Ox 09/07/21 19:21 73 23 H 119/61 09/07/21 18:20 66 119/61 94 L 09/07/21 17:40 89 L 09/07/21 17:20 97.9 F 88 20 137/74 93 L - My Orders Last 24 Hours: My Active Orders 09/07/21 19:57 CORONAVIRUS COVID-19 GEOVANNI [MOLEC] Stat - Assessment/Plan Last 24 Hours: My Active Orders 09/07/21 19:57 CORONAVIRUS COVID-19 GEOVANNI [MOLEC] Stat
[2021-09-07] MEDS ORDERED: Lactated Ringers 1,000 ML IV SCH (18:30)
--- NOTE | 2021-09-07 18:44 | PCM.EKG ---
#1 Interpretation EKG Date: 09/07/21 Time: 18:07 Rhythm: NSR Rate (Beats/Min): 65 [place]: Normal P-Wave: Present QRS: RBBB ST-T: Normal QT: Normal Comparison: NA - No Prior EKG EKG Interpretation Comments: Sinus Rhythm with RBBB
[2021-09-07 19:01] LABS: BLOOD UREA NITROGEN,BUN 11 mg/dL (7.0-18.0); CARBON DIOXIDE,CO2 29.6 mmol/L (21.0-32.0); CHLORIDE,CL 100 mmol/L (98-107); GLUCOSE RANDOM 109 mg/dL (74-106); POTASSIUM,K 4.1 mmol/L (3.5-5.1); SODIUM,NA 138 mmol/L (136-145)
--- NOTE | 2021-09-07 19:46 | CR ---
INDICATION: Hypoxia, shortness of breath. TECHNIQUE: Chest radiograph 1 view COMPARISON: 07/27/2021 FINDINGS: Cardiovascular and mediastinum: Cardiac silhouette is enlarged. Superior mediastinal and perihilar contours are unchanged. Lungs and pleural spaces: New peripheral, patchy opacities in left mid and left lower lung zone. Right hemithorax remains clear. Bones and soft tissues: No significant findings. IMPRESSION: 1. New patchy infiltrate suspected in the left mid and left lower lung zones, concerning for multifocal pneumonia or possible COVID-19 viral pneumonitis. Dictated by Lai Correa MD @ 09/07/2021 7:44:16 PM (Electronically Signed)
[2021-09-07] MEDS ORDERED: Iopamidol 755 MG/ML 500 ML Multipack Bottle IVPUSH ONE (20:52)
--- NOTE | 2021-09-07 21:44 | CT ---
INDICATION: Chest pain. Hypoxia. COMPARISON: 09/07/2021 chest x-ray. TECHNIQUE: CT angiography of the chest PE protocol. 100 cc IV [id number]. FINDINGS: No filling defect to indicate acute PE. Heart is enlarged. No pericardial effusion. Coronary artery calcifications. No enlarged thoracic lymph nodes. Imaged upper abdomen is unremarkable. Degenerative changes in the spine. Patchy bilateral ground-glass and consolidative opacities with subpleural predominance. No pleural effusion or pneumothorax. IMPRESSION: 1. No evidence of acute PE. 2. Patchy consolidative and ground-glass bilateral opacities with subpleural predominance which can be seen with infection such as COVID. 3. Cardiomegaly. Please note that all CT scans at this facility use dose modulation, iterative reconstruction, and/or weight-based dosing when appropriate to reduce radiation dose to as low as reasonably achievable. Dictated by David Colon MD @ 09/07/2021 9:42:52 PM (Electronically Signed)
[2021-09-08] MEDS ORDERED: REMDESIVIR 200 MG in Sodium Chloride 0.9% 250 ML IV ONE (01:25)
--- NOTE | 2021-09-08 01:34 | PCM.HP.2 ---
H&P History of Present Illness - General Date of Service: 09/08/21 Admit Problem/Dx: Admission Diagnosis/Problem Admission Diagnosis/Problem Hypoxia - History of Present Illness Initial Comments - Free Text/Narative: 66 yo female with pmh of rheumatoid arthritis, CHF, and hypertension who presents with several week history of worsening shortness of breath and productive cough. She tested positive for COVID five days ago. In the ED she was noted to be requiring 2 L O2 via NC to keep sats obove 90%. Generalized Pain Score (Numeric/FACES): 8 - Related Data Allergies/Adverse Reactions: Allergies Allergy/AdvReac Type Severity Reaction Status Date / Time No Known Allergies Allergy Verified 09/07/21 17:24 Home Medications: Home Meds Venlafaxine [Effexor XR] 225 mg PO DAILY 08/20/17 [History] amLODIPine [Norvasc] 0 mg PO DAILY 08/20/17 [History] Furosemide 10 mg PO DAILY 07/27/21 [History] Past Medical History - Past Health History Medical/Surgical History: Denies Medical/Surgical History HEENT History: Reports: Impaired Vision Other HEENT History: wears glasses Cardiovascular History: Reports: High Cholesterol, Hypertension Respiratory History: Reports: None Gastrointestinal History: Reports: None Genitourinary History: Reports: None NEUROPSYCHIATRIST History: Reports: Musculoskeletal History: Reports: None Neurological History: Reports: None Psychiatric History: Reports: Anxiety, Depression Endocrine/Metabolic History: Reports: None [employer] Assistant General Manager: None Hematologic History: Reports: None Immunologic History: Reports: None Oncologic (Cancer) History: Reports: None Dermatologic History: Reports: None - Infectious Disease History Infectious Disease History: Reports: Chicken Pox - Past Surgical History Head Surgeries/Procedures: Reports: None Social & Family History - Family History Family Medical History: No Pertinent Family History - Tobacco Use Tobacco Use Status *Q: Current Every Day Tobacco User Years of Tobacco use: 45 Packs/Tins Daily: 0.2 - Caffeine Use Caffeine Use: Reports: Soda Caffeine Use Comment: 1/2 cup daily - Recreational Drug Use Recreational Drug Use: No H&P Review of Systems - Review of Systems: Review Of Systems: Comprehensive ROS is negative, except as noted in HPI. Exam - Exam Exam: See Below - Vital Signs Vital Signs: Last Vital Signs Temp 36.4 C 09/08/21 00:05 Pulse 58 L 09/08/21 00:05 Resp 20 09/08/21 00:05 BP 104/58 L 09/08/21 00:05 Pulse Ox 95 09/08/21 00:05 Weight: 88.451 kg - Exam General: Alert, Oriented HEENT: Mucosa Moist & [place] Neck: Supple Lungs: Clear to Auscultation, Normal Respiratory Effort Cardiovascular: Regular Rate, Regular Rhythm GI/Abdominal Exam: Normal Bowel Sounds, Soft, Non-Tender Extremities: Non-Tender, No Pedal Edema Skin: Warm, Dry, Intact - Patient Data Lab Results Last 24 hrs: Laboratory Results - last 24 hr 09/07/21 09/07/21 09/07/21 Range/Units 18:26 18:26 21:00 WBC 5.85 (4.0-11.0) K/uL RBC 3.61 L (4.30-5.90) M/uL Hgb 10.8 L (12.0-16.0) g/dL Hct 33.2 L (36.0-46.0) % MCV 92.0 (80.0-98.0) fL MCH 29.9 (27.0-32.0) pg MCHC 32.5 (31.0-37.0) g/dL RDW Std Deviation 42.5 (28.0-62.0) fl RDW Coeff of Aby 13 (11.0-15.0) % Plt Count 301 (150-400) K/uL MPV 9.30 (7.40-12.00) fL Neut % (Auto) 81.8 H (48.0-80.0) % Lymph % (Auto) 10.6 L (16.0-40.0) % [place] % (Auto) 7.4 (0.0-15.0) % Eos % (Auto) 0.2 (0.0-7.0) % Baso % (Auto) 0.0 (0.0-1.5) % Neut # (Auto) 4.8 (1.4-5.7) K/uL Lymph # (Auto) 0.6 (0.6-2.4) K/uL [place] # (Auto) 0.4 (0.0-0.8) K/uL Eos # (Auto) 0.0 (0.0-0.7) K/uL Baso # (Auto) 0.0 (0.0-0.1) K/uL Sodium 138 (136-145) mmol/L Potassium 4.1 (3.5-5.1) mmol/L Chloride 100 (98-107) mmol/L Carbon Dioxide 29.6 (21.0-32.0) mmol/L BUN 11 (7.0-18.0) mg/dL Creatinine 0.8 (0.6-1.0) mg/dL Est Cr Clr Drug Dosing 67.27 mL/min Estimated GFR (MDRD) > 60.0 ml/min Glucose 109 H (74-106) mg/dL Calcium 7.9 L (8.5-10.1) mg/dL Total Bilirubin 0.3 (0.2-1.0) mg/dL AST 26 (15-37) IU/L ALT 14 (14-63) IU/L Alkaline Phosphatase 101 (46-116) U/L Troponin I < 0.050 (0.000-0.056) ng/mL Total Protein 6.5 (6.4-8.2) g/dL Albumin 2.6 L (3.4-5.0) g/dL Globulin 3.9 (2.6-4.0) g/dL Albumin/Globulin Ratio 0.7 L (0.9-1.6) SARS-CoV-2 RNA (GEOVANNI) POSITIVE H (NEGATIVE) Result Diagrams: 09/07/21 18:26 09/07/21 18:26 Sepsis Event Note - Focused Exam Vital Signs: Vital Signs Temp Pulse Resp BP Pulse Ox 09/08/21 00:05 36.4 C 58 L 20 104/58 L 95 09/07/21 23:25 97 22 H 131/94 H 95 09/07/21 22:05 60 25 H 119/61 99 09/07/21 21:00 69 25 H 100 09/07/21 19:21 73 23 H 119/61 09/07/21 18:20 66 119/61 94 L 09/07/21 17:40 89 L 09/07/21 17:20 36.6 C 88 20 137/74 93 L Problem List Initiated/Reviewed/Updated: Yes Orders Last 24hrs: Active Orders 24 hr Category Date Time Status Patient Status [ADT] Routine ADT 09/07/21 20:20 Active Oxygen Therapy [RC] PRN Care 09/08/21 01:26 Active Pulse Oximetry [RC] ASDIRECTED Care 09/07/21 18:02 Active Telemetry Monitoring [Cardiac Monitoring] [RC] Q8H Care 09/07/21 22:00 Active Up ad [place] [RC] ASDIRECTED Care 09/08/21 01:26 Active VTE/DVT Education [RC] PER UNIT ROUTINE Care 09/08/21 01:26 Active Vital Signs [RC] Q4H Care 09/08/21 01:26 Active Regular Diet [DIET] Diet 09/08/21 Breakfast Active CBC WITH AUTO DIFF [HEME] AM Lab 09/08/21 05:11 Ordered CBC WITH AUTO DIFF [HEME] AM Lab 09/09/21 05:11 Ordered CBC WITH AUTO DIFF [HEME] AM Lab 09/10/21 05:11 Ordered CBC WITH AUTO DIFF [HEME] AM Lab 09/11/21 05:11 Ordered CBC WITH AUTO DIFF [HEME] AM Lab 09/12/21 05:11 Ordered COMPREHENSIVE METABOLIC PN,CMP [CHEM] AM Lab 09/08/21 05:11 Ordered COMPREHENSIVE METABOLIC PN,CMP [CHEM] AM Lab 09/09/21 05:11 Ordered COMPREHENSIVE METABOLIC PN,CMP [CHEM] AM Lab 09/10/21 05:11 Ordered COMPREHENSIVE METABOLIC PN,CMP [CHEM] AM Lab 09/11/21 05:11 Ordered COMPREHENSIVE METABOLIC PN,CMP [CHEM] AM Lab 09/12/21 05:11 Ordered Enoxaparin [Lovenox] Med 09/08/21 01:30 Ordered 40 mg SUBCUT Q24H Furosemide [Lasix] Med 09/08/21 09:00 Ordered 10 mg PO DAILY Lactated Ringers [Ringers, Lactated] 1,000 ml Med 09/07/21 18:30 Active IV ASDIRECTED Remdesivir 100 mg Med 09/09/21 01:30 Ordered Sodium Chloride 0.9% [Normal Saline] 100 ml IV Q24H Remdesivir 200 mg Med 09/08/21 01:25 Ordered Sodium Chloride 0.9% [Normal Saline] 250 ml IV ONETIME Venlafaxine Med 09/08/21 09:00 Ordered 225 mg PO DAILY amLODIPine [Norvasc] Med 09/08/21 09:00 Ordered 5 mg PO DAILY dexAMETHasone Med 09/08/21 01:30 Ordered 6 mg PO Q24H Resuscitation Status Routine Resus Stat 09/08/21 01:26 Ordered Medication Orders Amlodipine Besylate (Amlodipine 5 Mg Tab) 5 mg PO DAILY NIKKO Dexamethasone (Dexamethasone 0.5 Mg Tab) 6 mg PO Q24H NIKKO Enoxaparin Sodium (Enoxaparin 40 Mg/0.4 Ml Syringe) 40 mg SUBCUT Q24H NIKKO Furosemide (Furosemide 20 Mg Tab) 10 mg PO DAILY [facility] Lactated Ringer's (Ringers, Lactated) 1,000 mls @ 999 mls/hr IV ASDIRECTED [facility] Last Admin: 09/07/21 18:28 Dose: 999 mls/hr Documented by: JESSUALA Remdesivir 200 mg/ Sodium (Chloride) 250 mls @ 250 mls/hr IV ONETIME ONE Stop: 09/08/21 01:26 Remdesivir 100 mg/ Sodium (Chloride) 100 mls @ 100 mls/hr IV Q24H NIKKO Stop: 09/12/21 02:29 Non-Formulary Medication (Venlafaxine) 225 mg PO DAILY [facility] Assessment/Plan Comment:: 66 yo female admitted for COVID pneumonia with hypoxia Hypoxia: will supplement oxygen via NC to keep sats above 90% COVID: treating with remdesivir and dexamethasone pneumonia: will start Levaquin lovenox for DVT prophylaxis
[2021-09-08] MEDS: Codeine/guaiFENesin 10-100 MG/5 ML Syrup 5 ML Cup PO PRN ×4 (02:40→23:15)
[2021-09-08] MEDS: Levofloxacin/Dextrose 5%-Water 750 MG in Premix Bag 1 BAG IV SCH (02:40)
[2021-09-08] MEDS: Dexamethasone 4 MG Tab PO SCH ×2 (02:40→20:49)
[2021-09-08] MEDS: Enoxaparin 40 MG/0.4 ML Syringe SUBCUT SCH ×2 (02:40→20:50)
[2021-09-08 06:41] LABS: BLOOD UREA NITROGEN,BUN 9 mg/dL (7.0-18.0); CARBON DIOXIDE,CO2 26.8 mmol/L (21.0-32.0); CHLORIDE,CL 103 mmol/L (98-107); GLUCOSE RANDOM 119 mg/dL (74-106); POTASSIUM,K 4.7 mmol/L (3.5-5.1); SODIUM,NA 140 mmol/L (136-145)
[2021-09-08] MEDS ORDERED: Furosemide 20 MG Tab PO SCH (09:00)
[2021-09-08] MEDS ORDERED: Venlafaxine 75 MG Cap.ER PO SCH (09:00)
[2021-09-08] MEDS: Venlafaxine 75 MG Cap.ER PO SCH (09:16)
[2021-09-08] MEDS: amLODIPine 5 MG Tab PO SCH (09:16)
[2021-09-08] MEDS: Furosemide 20 MG Tab PO SCH (09:17)
--- NOTE | 2021-09-08 10:03 | PCM.PN ---
- General Info Date of Service: 09/08/21 - Review of Systems Systems Review Comment:: feeling better today, reports shortness of breath and cough - Patient Data Vitals - Most Recent: Last Vital Signs Temp 36.0 C L 09/08/21 08:00 Pulse 56 L 09/08/21 08:00 Resp 16 09/08/21 08:00 BP 119/62 09/08/21 09:16 Pulse Ox 91 L 09/08/21 08:00 Weight - Most Recent: 92.624 kg I&O - Last 24 Hours: Intake & Output 09/07/21 09/08/21 09/08/21 22:59 06:59 14:59 Intake Total 520 Output Total 200 Balance 320 Lab Results Last 24 Hours: Laboratory Results - last 24 hr 09/07/21 09/07/21 09/07/21 Range/Units 18:26 18:26 18:26 WBC 5.85 (4.0-11.0) K/uL RBC 3.61 L (4.30-5.90) M/uL Hgb 10.8 L (12.0-16.0) g/dL Hct 33.2 L (36.0-46.0) % MCV 92.0 (80.0-98.0) fL MCH 29.9 (27.0-32.0) pg MCHC 32.5 (31.0-37.0) g/dL RDW Std Deviation 42.5 (28.0-62.0) fl RDW Coeff of Aby 13 (11.0-15.0) % Plt Count 301 (150-400) K/uL MPV 9.30 (7.40-12.00) fL Neut % (Auto) 81.8 H (48.0-80.0) % Lymph % (Auto) 10.6 L (16.0-40.0) % [place] % (Auto) 7.4 (0.0-15.0) % Eos % (Auto) 0.2 (0.0-7.0) % Baso % (Auto) 0.0 (0.0-1.5) % Neut # (Auto) 4.8 (1.4-5.7) K/uL Lymph # (Auto) 0.6 (0.6-2.4) K/uL [place] # (Auto) 0.4 (0.0-0.8) K/uL Eos # (Auto) 0.0 (0.0-0.7) K/uL Baso # (Auto) 0.0 (0.0-0.1) K/uL Sodium 138 (136-145) mmol/L Potassium 4.1 (3.5-5.1) mmol/L Chloride 100 (98-107) mmol/L Carbon Dioxide 29.6 (21.0-32.0) mmol/L BUN 11 (7.0-18.0) mg/dL Creatinine 0.8 (0.6-1.0) mg/dL Est Cr Clr Drug Dosing 67.27 mL/min Estimated GFR (MDRD) > 60.0 ml/min Glucose 109 H (74-106) mg/dL Calcium 7.9 L (8.5-10.1) mg/dL Total Bilirubin 0.3 (0.2-1.0) mg/dL AST 26 (15-37) IU/L ALT 14 (14-63) IU/L Alkaline Phosphatase 101 (46-116) U/L Troponin I < 0.050 (0.000-0.056) ng/mL C-Reactive Protein 11.70 H (0.00-0.90) mg/dL Total Protein 6.5 (6.4-8.2) g/dL Albumin 2.6 L (3.4-5.0) g/dL Globulin 3.9 (2.6-4.0) g/dL Albumin/Globulin Ratio 0.7 L (0.9-1.6) SARS-CoV-2 RNA (GEOVANNI) (NEGATIVE) 09/07/21 09/08/21 09/08/21 Range/Units 21:00 05:30 05:30 WBC 5.15 (4.0-11.0) K/uL RBC 3.63 L (4.30-5.90) M/uL Hgb 10.9 L (12.0-16.0) g/dL Hct 33.7 L (36.0-46.0) % MCV 92.8 (80.0-98.0) fL MCH 30.0 (27.0-32.0) pg MCHC 32.3 (31.0-37.0) g/dL RDW Std Deviation 42.5 (28.0-62.0) fl RDW Coeff of Aby 13 (11.0-15.0) % Plt Count 294 (150-400) K/uL MPV 9.70 (7.40-12.00) fL Neut % (Auto) 82.3 H (48.0-80.0) % Lymph % (Auto) 10.5 L (16.0-40.0) % [place] % (Auto) 7.0 (0.0-15.0) % Eos % (Auto) 0.2 (0.0-7.0) % Baso % (Auto) 0.0 (0.0-1.5) % Neut # (Auto) 4.2 (1.4-5.7) K/uL Lymph # (Auto) 0.5 L (0.6-2.4) K/uL [place] # (Auto) 0.4 (0.0-0.8) K/uL Eos # (Auto) 0.0 (0.0-0.7) K/uL Baso # (Auto) 0.0 (0.0-0.1) K/uL Sodium 140 (136-145) mmol/L Potassium 4.7 (3.5-5.1) mmol/L Chloride 103 (98-107) mmol/L Carbon Dioxide 26.8 (21.0-32.0) mmol/L BUN 9 (7.0-18.0) mg/dL Creatinine 0.6 (0.6-1.0) mg/dL Est Cr Clr Drug Dosing 103.09 mL/min Estimated GFR (MDRD) > 60.0 ml/min Glucose 119 H (74-106) mg/dL Calcium 8.1 L (8.5-10.1) mg/dL Total Bilirubin 0.3 (0.2-1.0) mg/dL AST 29 (15-37) IU/L ALT 15 (14-63) IU/L Alkaline Phosphatase 95 (46-116) U/L Troponin I (0.000-0.056) ng/mL C-Reactive Protein (0.00-0.90) mg/dL Total Protein 6.2 L (6.4-8.2) g/dL Albumin 2.4 L (3.4-5.0) g/dL Globulin 3.8 (2.6-4.0) g/dL Albumin/Globulin Ratio 0.6 L (0.9-1.6) SARS-CoV-2 RNA (GEOVANNI) POSITIVE H (NEGATIVE) Med Orders - Current: Current Medications Amlodipine Besylate (Amlodipine 5 Mg Tab) 5 mg PO DAILY [facility] Last Admin: 09/08/21 09:16 Dose: 5 mg Documented by: Dexamethasone (Dexamethasone 4 Mg Tab) 6 mg PO BEDTIME NIKKO Last Admin: 09/08/21 02:40 Dose: 6 mg Documented by: Enoxaparin Sodium (Enoxaparin 40 Mg/0.4 Ml Syringe) 40 mg SUBCUT BEDTIME NIKKO Last Admin: 09/08/21 02:40 Dose: 40 mg Documented by: Furosemide (Furosemide 20 Mg Tab) 20 mg PO DAILY [facility] Last Admin: 09/08/21 09:17 Dose: 20 mg Documented by: Guaifenesin/Codeine Phosphate (Codeine/Guaifenesin 10-100 Mg/5 Ml Syrup 5 Ml Cup) 5 ml PO Q6H PRN PRN Reason: Cough Last Admin: 09/08/21 09:17 Dose: 5 ml Documented by: Lactated Ringer's (Ringers, Lactated) 1,000 mls @ 999 mls/hr IV ASDIRECTED [facility] Last Admin: 09/07/21 18:28 Dose: 999 mls/hr Documented by: Remdesivir 100 mg/ Sodium (Chloride) 100 mls @ 100 mls/hr IV BEDTIME NIKKO Stop: 09/12/21 21:59 Levofloxacin/Dextrose 750 mg/ (Premix) 150 mls @ 100 mls/hr IV Q24H NIKKO Last Admin: 09/08/21 02:40 Dose: 100 mls/hr Documented by: Venlafaxine HCl (Venlafaxine 75 Mg Cap.Er) 150 mg PO DAILY NIKKO Last Admin: 09/08/21 09:16 Dose: 150 mg Documented by: Discontinued Medications Furosemide (Furosemide 20 Mg Tab) 10 mg PO DAILY [facility] Remdesivir 200 mg/ Sodium (Chloride) 250 mls @ 250 mls/hr IV ONETIME ONE Stop: 09/08/21 01:26 Last Admin: 09/08/21 02:41 Dose: 250 mls/hr Documented by: Iopamidol (Iopamidol 755 Mg/Ml 500 Ml Multipack Bottle) 100 ml IVPUSH ONETIME ONE Stop: 09/07/21 20:53 Last Admin: 09/07/21 20:54 Dose: 100 ml Documented by: Venlafaxine HCl (Venlafaxine 75 Mg Cap.Er) 225 mg PO DAILY NIKKO - Exam General: Alert, Oriented Lungs: Normal Respiratory Effort, Rhonchi Cardiovascular: Regular Rate, Regular Rhythm GI/Abdominal Exam: Normal Bowel Sounds, Soft, Non-Tender Extremities: Non-Tender, No Pedal Edema Skin: Warm, Dry, Intact Neurological: No New Focal Deficit - Patient Data Lab Results Last 24 hrs: Laboratory Results - last 24 hr 09/07/21 09/07/21 09/07/21 Range/Units 18:26 18:26 18:26 WBC 5.85 (4.0-11.0) K/uL RBC 3.61 L (4.30-5.90) M/uL Hgb 10.8 L (12.0-16.0) g/dL Hct 33.2 L (36.0-46.0) % MCV 92.0 (80.0-98.0) fL MCH 29.9 (27.0-32.0) pg MCHC 32.5 (31.0-37.0) g/dL RDW Std Deviation 42.5 (28.0-62.0) fl RDW Coeff of [place] 13 (11.0-15.0) % Plt Count 301 (150-400) K/uL MPV 9.30 (7.40-12.00) fL Neut % (Auto) 81.8 H (48.0-80.0) % Lymph % (Auto) 10.6 L (16.0-40.0) % [place] % (Auto) 7.4 (0.0-15.0) % Eos % (Auto) 0.2 (0.0-7.0) % Baso % (Auto) 0.0 (0.0-1.5) % Neut # (Auto) 4.8 (1.4-5.7) K/uL Lymph # (Auto) 0.6 (0.6-2.4) K/uL [place] # (Auto) 0.4 (0.0-0.8) K/uL Eos # (Auto) 0.0 (0.0-0.7) K/uL Baso # (Auto) 0.0 (0.0-0.1) K/uL Sodium 138 (136-145) mmol/L Potassium 4.1 (3.5-5.1) mmol/L Chloride 100 (98-107) mmol/L Carbon Dioxide 29.6 (21.0-32.0) mmol/L BUN 11 (7.0-18.0) mg/dL Creatinine 0.8 (0.6-1.0) mg/dL Est Cr Clr Drug Dosing 67.27 mL/min Estimated GFR (MDRD) > 60.0 ml/min Glucose 109 H (74-106) mg/dL Calcium 7.9 L (8.5-10.1) mg/dL Total Bilirubin 0.3 (0.2-1.0) mg/dL AST 26 (15-37) IU/L ALT 14 (14-63) IU/L Alkaline Phosphatase 101 (46-116) U/L Troponin I < 0.050 (0.000-0.056) ng/mL C-Reactive Protein 11.70 H (0.00-0.90) mg/dL Total Protein 6.5 (6.4-8.2) g/dL Albumin 2.6 L (3.4-5.0) g/dL Globulin 3.9 (2.6-4.0) g/dL Albumin/Globulin Ratio 0.7 L (0.9-1.6) SARS-CoV-2 RNA (GEOVANNI) (NEGATIVE) 09/07/21 09/08/21 09/08/21 Range/Units 21:00 05:30 05:30 WBC 5.15 (4.0-11.0) K/uL RBC 3.63 L (4.30-5.90) M/uL Hgb 10.9 L (12.0-16.0) g/dL Hct 33.7 L (36.0-46.0) % MCV 92.8 (80.0-98.0) fL MCH 30.0 (27.0-32.0) pg MCHC 32.3 (31.0-37.0) g/dL RDW Std Deviation 42.5 (28.0-62.0) fl RDW Coeff of Aby 13 (11.0-15.0) % Plt Count 294 (150-400) K/uL MPV 9.70 (7.40-12.00) fL Neut % (Auto) 82.3 H (48.0-80.0) % Lymph % (Auto) 10.5 L (16.0-40.0) % [place] % (Auto) 7.0 (0.0-15.0) % Eos % (Auto) 0.2 (0.0-7.0) % Baso % (Auto) 0.0 (0.0-1.5) % Neut # (Auto) 4.2 (1.4-5.7) K/uL Lymph # (Auto) 0.5 L (0.6-2.4) K/uL [place] # (Auto) 0.4 (0.0-0.8) K/uL Eos # (Auto) 0.0 (0.0-0.7) K/uL Baso # (Auto) 0.0 (0.0-0.1) K/uL Sodium 140 (136-145) mmol/L Potassium 4.7 (3.5-5.1) mmol/L Chloride 103 (98-107) mmol/L Carbon Dioxide 26.8 (21.0-32.0) mmol/L BUN 9 (7.0-18.0) mg/dL Creatinine 0.6 (0.6-1.0) mg/dL Est Cr Clr Drug Dosing 103.09 mL/min Estimated GFR (MDRD) > 60.0 ml/min Glucose 119 H (74-106) mg/dL Calcium 8.1 L (8.5-10.1) mg/dL Total Bilirubin 0.3 (0.2-1.0) mg/dL AST 29 (15-37) IU/L ALT 15 (14-63) IU/L Alkaline Phosphatase 95 (46-116) U/L Troponin I (0.000-0.056) ng/mL C-Reactive Protein (0.00-0.90) mg/dL Total Protein 6.2 L (6.4-8.2) g/dL Albumin 2.4 L (3.4-5.0) g/dL Globulin 3.8 (2.6-4.0) g/dL Albumin/Globulin Ratio 0.6 L (0.9-1.6) SARS-CoV-2 RNA (GEOVANNI) POSITIVE H (NEGATIVE) Result Diagrams: 09/08/21 05:30 09/08/21 05:30 Sepsis Event Note - Evaluation Sepsis Screening Result: No Definite Risk - Focused Exam Vital Signs: Vital Signs Temp Pulse Resp BP BP BP Pulse Ox 09/08/21 09:16 119/62 09/08/21 08:00 36.0 C L 56 L 16 107/63 91 L 09/08/21 04:00 36.6 C 59 L 20 126/65 97 09/08/21 01:26 09/08/21 00:05 36.4 C 58 L 20 104/58 L 95 09/07/21 23:25 97 22 H 131/94 H 95 09/07/21 22:05 60 25 H 119/61 99 Pulse Ox 09/08/21 09:16 09/08/21 08:00 09/08/21 04:00 09/08/21 01:26 95 09/08/21 00:05 09/07/21 23:25 09/07/21 22:05 - Problem List Review Problem List Initiated/Reviewed/Updated: Yes - My Orders Last 24 Hours: My Active Orders 09/07/21 22:00 Telemetry Monitoring [Cardiac Monitoring] [RC] Q8H 09/08/21 01:26 Oxygen Therapy [RC] PRN VTE/DVT Education [RC] DAILY Vital Signs [RC] Q4H Resuscitation Status Routine 09/08/21 01:29 Codeine/guaiFENesin [Robitussin AC] 5 ml PO Q6H PRN 09/08/21 01:30 Enoxaparin [Lovenox] 40 mg SUBCUT BEDTIME dexAMETHasone 6 mg PO BEDTIME 09/08/21 02:00 Levofloxacin/Dextrose 5%-Water [Levaquin in D5W 750 MG/150 ML] 750 mg Premix Bag 1 bag IV Q24H 09/08/21 05:30 PROCALCITONIN [REF] Routine 09/08/21 Breakfast Regular Diet [DIET] 09/08/21 09:00 Furosemide [Lasix] 20 mg PO DAILY Venlafaxine [Effexor XR] 150 mg PO DAILY amLODIPine [Norvasc] 5 mg PO DAILY 09/09/21 05:11 CBC WITH AUTO DIFF [HEME] AM COMPREHENSIVE METABOLIC PN,CMP [CHEM] AM 09/09/21 21:00 Remdesivir 100 mg Sodium Chloride 0.9% [Normal Saline] 100 ml IV BEDTIME 09/10/21 05:11 CBC WITH AUTO DIFF [HEME] AM COMPREHENSIVE METABOLIC PN,CMP [CHEM] AM 09/11/21 05:11 CBC WITH AUTO DIFF [HEME] AM COMPREHENSIVE METABOLIC PN,CMP [CHEM] AM 09/12/21 05:11 CBC WITH AUTO DIFF [HEME] AM COMPREHENSIVE METABOLIC PN,CMP [CHEM] AM - Plan Plan:: 66 yo female admitted for COVID pneumonia with hypoxia Hypoxia: on 2L supplement oxygen via NC to keep sats above 90% COVID: treating with remdesivir and dexamethasone pneumonia: continue Levaquin lovenox for DVT prophylaxis
[2021-09-08] MEDS: Acetaminophen 325 MG Tab PO PRN (20:48)
[2021-09-09] MEDS: Levofloxacin/Dextrose 5%-Water 750 MG in Premix Bag 1 BAG IV SCH (02:38)
[2021-09-09 07:26] LABS: BLOOD UREA NITROGEN,BUN 17 mg/dL (7.0-18.0); CARBON DIOXIDE,CO2 27.8 mmol/L (21.0-32.0); CHLORIDE,CL 103 mmol/L (98-107); GLUCOSE RANDOM 155 mg/dL (74-106); POTASSIUM,K 4.9 mmol/L (3.5-5.1); SODIUM,NA 139 mmol/L (136-145)
[2021-09-09] MEDS: Furosemide 20 MG Tab PO SCH (08:35)
[2021-09-09] MEDS: Venlafaxine 75 MG Cap.ER PO SCH (08:36)
[2021-09-09] MEDS: REMDESIVIR 100 MG in Sodium Chloride 0.9% 100 ML IV SCH (08:36)
[2021-09-09] MEDS: amLODIPine 5 MG Tab PO SCH (08:36)
[2021-09-09] MEDS: Codeine/guaiFENesin 10-100 MG/5 ML Syrup 5 ML Cup PO PRN (08:37)
[2021-09-09] MEDS: Acetaminophen 325 MG Tab PO PRN (11:11)
[2021-09-09] MEDS ORDERED: Ibuprofen 200 MG Tab PO PRN (14:48)
--- NOTE | 2021-09-09 14:51 | PCM.PN ---
- General Info Date of Service: 09/09/21 - Review of Systems Systems Review Comment:: feeling better, today, has cough and shortness of breath with exertion - Patient Data Vitals - Most Recent: Last Vital Signs Temp 36.7 C 09/09/21 08:00 Pulse 59 L 09/09/21 08:00 Resp 20 09/09/21 08:00 BP 132/65 09/09/21 08:36 Pulse Ox 93 L 09/09/21 08:00 Weight - Most Recent: 92.624 kg I&O - Last 24 Hours: Intake & Output 09/08/21 09/09/21 09/09/21 22:59 06:59 14:59 Intake Total 1320 800 Output Total 600 950 Balance 720 -150 Lab Results Last 24 Hours: Laboratory Results - last 24 hr 09/08/21 09/09/21 09/09/21 Range/Units 05:30 05:56 05:56 WBC 6.15 (4.0-11.0) K/uL RBC 3.62 L (4.30-5.90) M/uL Hgb 10.9 L (12.0-16.0) g/dL Hct 32.5 L (36.0-46.0) % MCV 89.8 (80.0-98.0) fL MCH 30.1 (27.0-32.0) pg MCHC 33.5 (31.0-37.0) g/dL RDW Std Deviation 43.3 (28.0-62.0) fl RDW Coeff of Aby 13 (11.0-15.0) % Plt Count 323 (150-400) K/uL MPV 9.90 (7.40-12.00) fL Neut % (Auto) 83.3 H (48.0-80.0) % Lymph % (Auto) 9.8 L (16.0-40.0) % [place] % (Auto) 6.7 (0.0-15.0) % Eos % (Auto) 0.0 (0.0-7.0) % Baso % (Auto) 0.2 (0.0-1.5) % Neut # (Auto) 5.1 (1.4-5.7) K/uL Lymph # (Auto) 0.6 (0.6-2.4) K/uL [place] # (Auto) 0.4 (0.0-0.8) K/uL Eos # (Auto) 0.0 (0.0-0.7) K/uL Baso # (Auto) 0.0 (0.0-0.1) K/uL Nucleated RBC % 0.0 /100WBC Nucleated RBCs # 0 K/uL Sodium 139 (136-145) mmol/L Potassium 4.9 (3.5-5.1) mmol/L Chloride 103 (98-107) mmol/L Carbon Dioxide 27.8 (21.0-32.0) mmol/L BUN 17 (7.0-18.0) mg/dL Creatinine 0.7 (0.6-1.0) mg/dL Est Cr Clr Drug Dosing 88.36 mL/min Estimated GFR (MDRD) > 60.0 ml/min Glucose 155 H (74-106) mg/dL Calcium 8.3 L (8.5-10.1) mg/dL Total Bilirubin 0.2 (0.2-1.0) mg/dL AST 25 (15-37) IU/L ALT 15 (14-63) IU/L Alkaline Phosphatase 92 (46-116) U/L Total Protein 6.1 L (6.4-8.2) g/dL Albumin 2.3 L (3.4-5.0) g/dL Globulin 3.8 (2.6-4.0) g/dL Albumin/Globulin Ratio 0.6 L (0.9-1.6) Procalcitonin <0.05 ng/mL Med Orders - Current: Current Medications Acetaminophen (Acetaminophen 325 Mg Tab) 650 mg PO Q6H PRN PRN Reason: Pain Last Admin: 09/09/21 11:11 Dose: 650 mg Documented by: Amlodipine Besylate (Amlodipine 5 Mg Tab) 5 mg PO DAILY [facility] Last Admin: 09/09/21 08:36 Dose: 5 mg Documented by: Dexamethasone (Dexamethasone 4 Mg Tab) 6 mg PO BEDTIME [facility] Last Admin: 09/08/21 20:49 Dose: 6 mg Documented by: Enoxaparin Sodium (Enoxaparin 40 Mg/0.4 Ml Syringe) 40 mg SUBCUT BEDTIME [facility] Last Admin: 09/08/21 20:50 Dose: 40 mg Documented by: Furosemide (Furosemide 20 Mg Tab) 20 mg PO DAILY [facility] Last Admin: 09/09/21 08:35 Dose: 20 mg Documented by: Guaifenesin/Codeine Phosphate (Codeine/Guaifenesin 10-100 Mg/5 Ml Syrup 5 Ml Cup) 5 ml PO Q6H PRN PRN Reason: Cough Last Admin: 09/09/21 08:37 Dose: 5 ml Documented by: Lactated Ringer's (Ringers, Lactated) 1,000 mls @ 999 mls/hr IV ASDIRECTED [facility] Last Admin: 09/07/21 18:28 Dose: 999 mls/hr Documented by: Remdesivir 100 mg/ Sodium (Chloride) 100 mls @ 100 mls/hr IV DAILY [facility] Stop: 09/12/21 09:59 Last Admin: 09/09/21 08:36 Dose: 100 mls/hr Documented by: Levofloxacin/Dextrose 750 mg/ (Premix) 150 mls @ 100 mls/hr IV Q24H [facility] Last Admin: 09/09/21 02:38 Dose: 100 mls/hr Documented by: Venlafaxine HCl (Venlafaxine 75 Mg Cap.Er) 150 mg PO DAILY [facility] Last Admin: 09/09/21 08:36 Dose: 150 mg Documented by: Discontinued Medications Furosemide (Furosemide 20 Mg Tab) 10 mg PO DAILY [facility] Remdesivir 200 mg/ Sodium (Chloride) 250 mls @ 250 mls/hr IV ONETIME ONE Stop: 09/08/21 01:26 Last Admin: 09/08/21 02:41 Dose: 250 mls/hr Documented by: Iopamidol (Iopamidol 755 Mg/Ml 500 Ml Multipack Bottle) 100 ml IVPUSH ONETIME ONE Stop: 09/07/21 20:53 Last Admin: 09/07/21 20:54 Dose: 100 ml Documented by: Venlafaxine HCl (Venlafaxine 75 Mg Cap.Er) 225 mg PO DAILY [facility] - Exam General: Alert, Oriented Neck: Supple Lungs: Clear to Auscultation, Normal Respiratory Effort Cardiovascular: Regular Rate, Regular Rhythm GI/Abdominal Exam: Normal Bowel Sounds, Soft, Non-Tender Extremities: Non-Tender, No Pedal Edema Skin: Warm, Dry, Intact Neurological: No New Focal Deficit - Patient Data Lab Results Last 24 hrs: Laboratory Results - last 24 hr 09/08/21 09/09/21 09/09/21 Range/Units 05:30 05:56 05:56 WBC 6.15 (4.0-11.0) K/uL RBC 3.62 L (4.30-5.90) M/uL Hgb 10.9 L (12.0-16.0) g/dL Hct 32.5 L (36.0-46.0) % MCV 89.8 (80.0-98.0) fL MCH 30.1 (27.0-32.0) pg MCHC 33.5 (31.0-37.0) g/dL RDW Std Deviation 43.3 (28.0-62.0) fl RDW Coeff of Aby 13 (11.0-15.0) % Plt Count 323 (150-400) K/uL MPV 9.90 (7.40-12.00) fL Neut % (Auto) 83.3 H (48.0-80.0) % Lymph % (Auto) 9.8 L (16.0-40.0) % [place] % (Auto) 6.7 (0.0-15.0) % Eos % (Auto) 0.0 (0.0-7.0) % Baso % (Auto) 0.2 (0.0-1.5) % Neut # (Auto) 5.1 (1.4-5.7) K/uL Lymph # (Auto) 0.6 (0.6-2.4) K/uL [place] # (Auto) 0.4 (0.0-0.8) K/uL Eos # (Auto) 0.0 (0.0-0.7) K/uL Baso # (Auto) 0.0 (0.0-0.1) K/uL Nucleated RBC % 0.0 /100WBC Nucleated RBCs # 0 K/uL Sodium 139 (136-145) mmol/L Potassium 4.9 (3.5-5.1) mmol/L Chloride 103 (98-107) mmol/L Carbon Dioxide 27.8 (21.0-32.0) mmol/L BUN 17 (7.0-18.0) mg/dL Creatinine 0.7 (0.6-1.0) mg/dL Est Cr Clr Drug Dosing 88.36 mL/min Estimated GFR (MDRD) > 60.0 ml/min Glucose 155 H (74-106) mg/dL Calcium 8.3 L (8.5-10.1) mg/dL Total Bilirubin 0.2 (0.2-1.0) mg/dL AST 25 (15-37) IU/L ALT 15 (14-63) IU/L Alkaline Phosphatase 92 (46-116) U/L Total Protein 6.1 L (6.4-8.2) g/dL Albumin 2.3 L (3.4-5.0) g/dL Globulin 3.8 (2.6-4.0) g/dL Albumin/Globulin Ratio 0.6 L (0.9-1.6) Procalcitonin <0.05 ng/mL Result Diagrams: 09/09/21 05:56 09/09/21 05:56 Sepsis Event Note - Evaluation Sepsis Screening Result: No Definite Risk - Focused Exam Vital Signs: Vital Signs Temp Pulse Resp BP BP Pulse Ox Pulse Ox 09/09/21 08:36 132/65 09/09/21 08:00 36.7 C 59 L 20 118/68 93 L 09/09/21 05:00 92 L 09/09/21 04:00 36.5 C 62 19 105/65 92 L - Problem List Review Problem List Initiated/Reviewed/Updated: Yes - My Orders Last 24 Hours: My Active Orders 09/08/21 15:54 Discontinue Telemetry Monitoring [Cardiac Monitoring Discontinue] [RC] Click to Edit 09/08/21 15:55 Overnight Pulse Oximetry [RC] Click to Edit Pulse Oximetry Continuous Monitoring [OM.PC] Routine 09/08/21 20:33 Acetaminophen [TylenoL] 650 mg PO Q6H PRN 09/09/21 09:00 Remdesivir 100 mg Sodium Chloride 0.9% [Normal Saline] 100 ml IV DAILY 09/09/21 14:48 Ibuprofen [Motrin] 200 mg PO Q4H PRN Melatonin 6 mg PO BEDTIME PRN 09/10/21 05:11 CBC WITH AUTO DIFF [HEME] AM COMPREHENSIVE METABOLIC PN,CMP [CHEM] AM 09/11/21 05:11 CBC WITH AUTO DIFF [HEME] AM COMPREHENSIVE METABOLIC PN,CMP [CHEM] AM 09/12/21 05:11 CBC WITH AUTO DIFF [HEME] AM COMPREHENSIVE METABOLIC PN,CMP [CHEM] AM - Plan Plan:: 66 yo female admitted for COVID pneumonia with hypoxia Hypoxia: on 1 L supplement oxygen via NC to keep sats above 90% COVID: treating with remdesivir and dexamethasone pneumonia: continue Levaquin lovenox for DVT prophylaxis
[2021-09-09] MEDS ORDERED: Docusate Sodium 100 MG Cap PO PRN (15:04)
[2021-09-09] MEDS: Benzocaine/Cetylpyridinium/Menthol Lozenge MUCMEM PRN (17:31)
[2021-09-09] MEDS: Melatonin 3 MG Tab PO PRN (21:58)
[2021-09-09] MEDS: Dexamethasone 4 MG Tab PO SCH (21:58)
[2021-09-09] MEDS: Enoxaparin 40 MG/0.4 ML Syringe SUBCUT SCH (21:58)
[2021-09-10] MEDS: Benzocaine/Cetylpyridinium/Menthol Lozenge MUCMEM PRN ×2 (00:29→20:33)
[2021-09-10] MEDS: Codeine/guaiFENesin 10-100 MG/5 ML Syrup 5 ML Cup PO PRN ×3 (01:53→20:33)
[2021-09-10] MEDS: Levofloxacin/Dextrose 5%-Water 750 MG in Premix Bag 1 BAG IV SCH (01:53)
[2021-09-10 08:30] LABS: BLOOD UREA NITROGEN,BUN 18 mg/dL (7.0-18.0); CARBON DIOXIDE,CO2 27.9 mmol/L (21.0-32.0); CHLORIDE,CL 104 mmol/L (98-107); GLUCOSE RANDOM 154 mg/dL (74-106); POTASSIUM,K 4.6 mmol/L (3.5-5.1); SODIUM,NA 142 mmol/L (136-145)
[2021-09-10] MEDS: REMDESIVIR 100 MG in Sodium Chloride 0.9% 100 ML IV SCH (09:22)
[2021-09-10] MEDS: Venlafaxine 75 MG Cap.ER PO SCH (09:22)
[2021-09-10] MEDS: Furosemide 20 MG Tab PO SCH (09:25)
[2021-09-10] MEDS: amLODIPine 5 MG Tab PO SCH (09:25)
--- NOTE | 2021-09-10 12:18 | PCM.PN ---
- General Info Date of Service: 09/10/21 - Review of Systems Systems Review Comment:: reports fatigue, shortness of breath with exertion - Patient Data Vitals - Most Recent: Last Vital Signs Temp 36.5 C 09/10/21 12:00 Pulse 52 L 09/10/21 12:00 Resp 20 09/10/21 12:00 BP 135/66 09/10/21 12:00 Pulse Ox 90 L 09/10/21 08:37 Weight - Most Recent: 92.624 kg I&O - Last 24 Hours: Intake & Output 09/09/21 09/10/21 09/10/21 22:59 06:59 14:59 Intake Total 680 850 Output Total 1250 800 Balance -570 50 Lab Results Last 24 Hours: Laboratory Results - last 24 hr 09/10/21 09/10/21 Range/Units 07:40 07:40 WBC 5.76 (4.0-11.0) K/uL RBC 3.82 L (4.30-5.90) M/uL Hgb 11.3 L (12.0-16.0) g/dL Hct 34.1 L (36.0-46.0) % MCV 89.3 (80.0-98.0) fL MCH 29.6 (27.0-32.0) pg MCHC 33.1 (31.0-37.0) g/dL RDW Std Deviation 42.6 (28.0-62.0) fl RDW Coeff of Aby 13 (11.0-15.0) % Plt Count 397 (150-400) K/uL MPV 9.80 (7.40-12.00) fL Add Manual Diff YES Neutrophils % (Manual) 84 H (48.0-80.0) % Band Neutrophils % 2 % Lymphocytes % (Manual) 7 L (16.0-40.0) % Atypical Lymphs % 3 Monocytes % (Manual) 4 (0.0-15.0) % Nucleated RBC % 0.0 /100WBC Absolute Seg Neuts 4.8 (1.4-5.7) Band Neutrophils # 0.1 Lymphocytes # (Manual) 0.4 L (0.6-2.4) Monocytes # (Manual) 0.2 (0.0-0.8) Nucleated RBCs # 0 K/uL Sodium 142 (136-145) mmol/L Potassium 4.6 (3.5-5.1) mmol/L Chloride 104 (98-107) mmol/L Carbon Dioxide 27.9 (21.0-32.0) mmol/L BUN 18 (7.0-18.0) mg/dL Creatinine 0.7 (0.6-1.0) mg/dL Est Cr Clr Drug Dosing 88.36 mL/min Estimated GFR (MDRD) > 60.0 ml/min Glucose 154 H (74-106) mg/dL Calcium 8.4 L (8.5-10.1) mg/dL Total Bilirubin 0.2 (0.2-1.0) mg/dL AST 25 (15-37) IU/L ALT 18 (14-63) IU/L Alkaline Phosphatase 97 (46-116) U/L Total Protein 6.2 L (6.4-8.2) g/dL Albumin 2.4 L (3.4-5.0) g/dL Globulin 3.8 (2.6-4.0) g/dL Albumin/Globulin Ratio 0.6 L (0.9-1.6) Med Orders - Current: Current Medications Acetaminophen (Acetaminophen 325 Mg Tab) 650 mg PO Q6H PRN PRN Reason: Pain Last Admin: 09/09/21 11:11 Dose: 650 mg Documented by: Amlodipine Besylate (Amlodipine 5 Mg Tab) 5 mg PO DAILY [facility] Last Admin: 09/10/21 09:25 Dose: 5 mg Documented by: Benzocaine/Menthol (Benzocaine/Cetylpyridinium/Menthol Lozenge) 1 lozenge MUCMEM Q6HR PRN PRN Reason: Sore Throat Last Admin: 09/10/21 00:29 Dose: 1 lozenge Documented by: Dexamethasone (Dexamethasone 4 Mg Tab) 6 mg PO BEDTIME [facility] Last Admin: 09/09/21 21:58 Dose: 6 mg Documented by: Docusate Sodium (Docusate Sodium 100 Mg Cap) 100 mg PO DAILY PRN PRN Reason: Constipation Last Admin: 09/09/21 17:31 Dose: 100 mg Documented by: Enoxaparin Sodium (Enoxaparin 40 Mg/0.4 Ml Syringe) 40 mg SUBCUT BEDTIME [facility] Last Admin: 09/09/21 21:58 Dose: 40 mg Documented by: Furosemide (Furosemide 20 Mg Tab) 20 mg PO DAILY [facility] Last Admin: 09/10/21 09:25 Dose: 20 mg Documented by: Guaifenesin/Codeine Phosphate (Codeine/Guaifenesin 10-100 Mg/5 Ml Syrup 5 Ml Cup) 5 ml PO Q6H PRN PRN Reason: Cough Last Admin: 09/10/21 09:35 Dose: 5 ml Documented by: Lactated Ringer's (Ringers, Lactated) 1,000 mls @ 999 mls/hr IV ASDIRECTED [facility] Last Admin: 09/07/21 18:28 Dose: 999 mls/hr Documented by: Remdesivir 100 mg/ Sodium (Chloride) 100 mls @ 100 mls/hr IV DAILY [facility] Stop: 09/12/21 09:59 Last Admin: 09/10/21 09:22 Dose: 100 mls/hr Documented by: Levofloxacin/Dextrose 750 mg/ (Premix) 150 mls @ 100 mls/hr IV Q24H [facility] Last Admin: 09/10/21 01:53 Dose: 100 mls/hr Documented by: Ibuprofen (Ibuprofen 200 Mg Tab) 200 mg PO Q4H PRN PRN Reason: Pain Last Admin: 09/09/21 17:30 Dose: 200 mg Documented by: Melatonin (Melatonin 3 Mg Tab) 6 mg PO BEDTIME PRN PRN Reason: Insomnia Last Admin: 09/09/21 21:58 Dose: 6 mg Documented by: Venlafaxine HCl (Venlafaxine 75 Mg Cap.Er) 150 mg PO DAILY [facility] Last Admin: 09/10/21 09:22 Dose: 150 mg Documented by: Discontinued Medications Furosemide (Furosemide 20 Mg Tab) 10 mg PO DAILY [facility] Remdesivir 200 mg/ Sodium (Chloride) 250 mls @ 250 mls/hr IV ONETIME ONE Stop: 09/08/21 01:26 Last Admin: 09/08/21 02:41 Dose: 250 mls/hr Documented by: Iopamidol (Iopamidol 755 Mg/Ml 500 Ml Multipack Bottle) 100 ml IVPUSH ONETIME ONE Stop: 09/07/21 20:53 Last Admin: 09/07/21 20:54 Dose: 100 ml Documented by: Venlafaxine HCl (Venlafaxine 75 Mg Cap.Er) 225 mg PO DAILY [facility] - Exam General: Alert, Oriented Neck: Supple Lungs: Clear to Auscultation, Normal Respiratory Effort Cardiovascular: Regular Rate, Regular Rhythm GI/Abdominal Exam: Soft, Non-Tender, No Distention Extremities: No Pedal Edema Neurological: No New Focal Deficit - Patient Data Lab Results Last 24 hrs: Laboratory Results - last 24 hr 09/10/21 09/10/21 Range/Units 07:40 07:40 WBC 5.76 (4.0-11.0) K/uL RBC 3.82 L (4.30-5.90) M/uL Hgb 11.3 L (12.0-16.0) g/dL Hct 34.1 L (36.0-46.0) % MCV 89.3 (80.0-98.0) fL MCH 29.6 (27.0-32.0) pg MCHC 33.1 (31.0-37.0) g/dL RDW Std Deviation 42.6 (28.0-62.0) fl RDW Coeff of Aby 13 (11.0-15.0) % Plt Count 397 (150-400) K/uL MPV 9.80 (7.40-12.00) fL Add Manual Diff YES Neutrophils % (Manual) 84 H (48.0-80.0) % Band Neutrophils % 2 % Lymphocytes % (Manual) 7 L (16.0-40.0) % Atypical Lymphs % 3 Monocytes % (Manual) 4 (0.0-15.0) % Nucleated RBC % 0.0 /100WBC Absolute Seg Neuts 4.8 (1.4-5.7) Band Neutrophils # 0.1 Lymphocytes # (Manual) 0.4 L (0.6-2.4) Monocytes # (Manual) 0.2 (0.0-0.8) Nucleated RBCs # 0 K/uL Sodium 142 (136-145) mmol/L Potassium 4.6 (3.5-5.1) mmol/L Chloride 104 (98-107) mmol/L Carbon Dioxide 27.9 (21.0-32.0) mmol/L BUN 18 (7.0-18.0) mg/dL Creatinine 0.7 (0.6-1.0) mg/dL Est Cr Clr Drug Dosing 88.36 mL/min Estimated GFR (MDRD) > 60.0 ml/min Glucose 154 H (74-106) mg/dL Calcium 8.4 L (8.5-10.1) mg/dL Total Bilirubin 0.2 (0.2-1.0) mg/dL AST 25 (15-37) IU/L ALT 18 (14-63) IU/L Alkaline Phosphatase 97 (46-116) U/L Total Protein 6.2 L (6.4-8.2) g/dL Albumin 2.4 L (3.4-5.0) g/dL Globulin 3.8 (2.6-4.0) g/dL Albumin/Globulin Ratio 0.6 L (0.9-1.6) Result Diagrams: 09/10/21 07:40 09/10/21 07:40 Sepsis Event Note - Evaluation Sepsis Screening Result: No Definite Risk - Focused Exam Vital Signs: Vital Signs Temp Pulse Resp BP BP Pulse Ox Pulse Ox 09/10/21 12:00 36.5 C 52 L 20 135/66 09/10/21 09:25 154/76 H 09/10/21 08:37 36.3 C 60 14 154/76 H 90 L 09/10/21 06:00 93 L 09/10/21 03:45 36.0 C L 52 L 18 159/95 H 93 L 09/10/21 00:30 36.3 C 61 18 111/64 93 L - Problem List Review Problem List Initiated/Reviewed/Updated: Yes - My Orders Last 24 Hours: My Active Orders 09/09/21 14:48 Ibuprofen [Motrin] 200 mg PO Q4H PRN 09/09/21 15:04 Docusate Sodium [Colace] 100 mg PO DAILY PRN 09/09/21 15:38 Benzocaine/Cetylpyrd/Menthol [Cepacol Sore Throat] 1 lozenge MUCMEM Q6HR PRN 09/09/21 21:00 Melatonin 6 mg PO BEDTIME PRN 09/11/21 05:11 CBC WITH AUTO DIFF [HEME] AM COMPREHENSIVE METABOLIC PN,CMP [CHEM] AM 09/12/21 05:11 CBC WITH AUTO DIFF [HEME] AM COMPREHENSIVE METABOLIC PN,CMP [CHEM] AM - Plan Plan:: 66 yo female admitted for COVID pneumonia with hypoxia Hypoxia: maintains O2 sats at rest but desats on exertion COVID: treating with remdesivir and dexamethasone pneumonia: continue Levaquin lovenox for DVT prophylaxis
[2021-09-10] MEDS: Enoxaparin 40 MG/0.4 ML Syringe SUBCUT SCH (20:18)
[2021-09-10] MEDS: Dexamethasone 4 MG Tab PO SCH (20:18)
[2021-09-10] MEDS: Melatonin 3 MG Tab PO PRN (22:00)
[2021-09-11] MEDS: Levofloxacin/Dextrose 5%-Water 750 MG in Premix Bag 1 BAG IV SCH (03:00)
[2021-09-11 08:08] LABS: BLOOD UREA NITROGEN,BUN 15 mg/dL (7.0-18.0); CARBON DIOXIDE,CO2 28.9 mmol/L (21.0-32.0); CHLORIDE,CL 102 mmol/L (98-107); GLUCOSE RANDOM 155 mg/dL (74-106); POTASSIUM,K 4.4 mmol/L (3.5-5.1); SODIUM,NA 141 mmol/L (136-145)
[2021-09-11] MEDS: Venlafaxine 75 MG Cap.ER PO SCH (09:14)
[2021-09-11] MEDS: amLODIPine 5 MG Tab PO SCH (09:15)
[2021-09-11] MEDS: Furosemide 20 MG Tab PO SCH (09:15)
[2021-09-11] MEDS: REMDESIVIR 100 MG in Sodium Chloride 0.9% 100 ML IV SCH (09:16)
[2021-09-11 09:25] VITALS: BP 106/75
[2021-09-11 12:24] VITALS: PULSE 63
--- NOTE | 2021-09-11 14:46 | PCM.DCSUM1 ---
Discharge Summary - Discharge Data Discharge Date: 09/11/21 Discharge Disposition: Home, Self-Care 01 Condition: Good - Referral to Home Health Primary Care Physician: Preston Gann MD - Patient Summary/Data Hospital Course: 66 yo female with pmh of rheumatoid arthritis, CHF, and hypertension who presents with several week history of worsening shortness of breath and productive cough. She tested positive for COVID five days ago. In the ED she was noted to be requiring 2 L O2 via NC to keep sats above 90%. CT scan of the chest was negative for PE but reported bilateral ground glass opacities. She was treat with dexamethasone and remdesivir. She was weaned off oxygen at rest but at discharge was desating with walking to 87%. She is requesting discharge home today. Will discharge her home with home O2 1 L NC with exercise. She is to follow up with her primary care provider. - Patient Instructions Diet: Regular Diet as Tolerated Activity: As Tolerated Notify Provider of: Fever, Increased Pain, Nausea and/or Vomiting - Discharge Plan Prescriptions/Med Rec: Albuterol [Proventil HFA] 1 puff INH QID PRN #1 ea PRN Reason: Wheezing Home Medications: Home Meds Venlafaxine [Effexor XR] 150 mg PO DAILY 08/20/17 [History] amLODIPine [Norvasc] 10 mg PO DAILY 08/20/17 [History] Furosemide 20 mg PO DAILY 07/27/21 [History] Methotrexate 15 mg PO WE 09/08/21 [History] atorvaSTATin [Lipitor] 20 mg PO BEDTIME 09/08/21 [History] Albuterol [Proventil HFA] 1 puff INH QID PRN #1 ea 09/11/21 [Rx] Oxygen Therapy Mode: Nasal Cannula Oxygen Flow Rate (L/min): 1 (with exercisie) Patient Handouts: Hypoxia, COVID-19, Symptoms of COVID-19 - CDC (01/19/2021), Infection Prevention in the Home, COVID-19: Quarantine vs. Isolation - CDC (11/13/2020) Referrals: Preston Gann MD [Primary Care Provider] - 09/28/21 1:30 pm - Discharge Summary/Plan Comment DC Time >30 min.: No Total # of Minutes for Discharge Time: 15 - Patient Data Vitals - Most Recent: Last Vital Signs Temp 35.9 C L 09/11/21 10:00 Pulse 63 09/11/21 10:00 Resp 16 09/11/21 10:00 BP 106/75 09/11/21 10:00 Pulse Ox 91 L 09/11/21 10:00 Weight - Most Recent: 92.624 kg I&O - Last 24 hours: Intake & Output 09/10/21 09/11/21 09/11/21 22:59 06:59 14:59 Intake Total 1000 1150 Output Total 950 1500 Balance 50 -350 Lab Results - Last 24 hrs: Laboratory Results - last 24 hr 09/11/21 09/11/21 Range/Units 05:55 05:55 WBC 6.01 (4.0-11.0) K/uL RBC 3.88 L (4.30-5.90) M/uL Hgb 11.5 L (12.0-16.0) g/dL Hct 34.4 L (36.0-46.0) % MCV 88.7 (80.0-98.0) fL MCH 29.6 (27.0-32.0) pg MCHC 33.4 (31.0-37.0) g/dL RDW Std Deviation 42.3 (28.0-62.0) fl RDW Coeff of Aby 13 (11.0-15.0) % Plt Count 429 H (150-400) K/uL MPV 9.70 (7.40-12.00) fL Add Manual Diff YES Neutrophils % (Manual) 81 H (48.0-80.0) % Band Neutrophils % 1 % Lymphocytes % (Manual) 15 L (16.0-40.0) % Monocytes % (Manual) 3 (0.0-15.0) % Nucleated RBC % 0.0 /100WBC Absolute Seg Neuts 4.9 (1.4-5.7) Band Neutrophils # 0.1 Lymphocytes # (Manual) 0.9 (0.6-2.4) Monocytes # (Manual) 0.2 (0.0-0.8) Nucleated RBCs # 0 K/uL Reactive Lymphocytes FEW Sodium 141 (136-145) mmol/L Potassium 4.4 (3.5-5.1) mmol/L Chloride 102 (98-107) mmol/L Carbon Dioxide 28.9 (21.0-32.0) mmol/L BUN 15 (7.0-18.0) mg/dL Creatinine 0.7 (0.6-1.0) mg/dL Est Cr Clr Drug Dosing 88.36 mL/min Estimated GFR (MDRD) > 60.0 ml/min Glucose 155 H (74-106) mg/dL Calcium 8.3 L (8.5-10.1) mg/dL Total Bilirubin 0.2 (0.2-1.0) mg/dL AST 29 (15-37) IU/L ALT 24 (14-63) IU/L Alkaline Phosphatase 103 (46-116) U/L Total Protein 6.3 L (6.4-8.2) g/dL Albumin 2.4 L (3.4-5.0) g/dL Globulin 3.9 (2.6-4.0) g/dL Albumin/Globulin Ratio 0.6 L (0.9-1.6) Med Orders - Current: Current Medications Acetaminophen (Acetaminophen 325 Mg Tab) 650 mg PO Q6H PRN PRN Reason: Pain Last Admin: 09/09/21 11:11 Dose: 650 mg Documented by: Amlodipine Besylate (Amlodipine 5 Mg Tab) 5 mg PO DAILY [facility] Last Admin: 09/11/21 09:15 Dose: 5 mg Documented by: Benzocaine/Menthol (Benzocaine/Cetylpyridinium/Menthol Lozenge) 1 lozenge MUCMEM Q6HR PRN PRN Reason: Sore Throat Last Admin: 09/10/21 20:33 Dose: 1 lozenge Documented by: Dexamethasone (Dexamethasone 4 Mg Tab) 6 mg PO BEDTIME [facility] Last Admin: 09/10/21 20:18 Dose: 6 mg Documented by: Docusate Sodium (Docusate Sodium 100 Mg Cap) 100 mg PO DAILY PRN PRN Reason: Constipation Last Admin: 09/09/21 17:31 Dose: 100 mg Documented by: Enoxaparin Sodium (Enoxaparin 40 Mg/0.4 Ml Syringe) 40 mg SUBCUT BEDTIME [facility] Last Admin: 09/10/21 20:18 Dose: 40 mg Documented by: Furosemide (Furosemide 20 Mg Tab) 20 mg PO DAILY [facility] Last Admin: 09/11/21 09:15 Dose: 20 mg Documented by: Guaifenesin/Codeine Phosphate (Codeine/Guaifenesin 10-100 Mg/5 Ml Syrup 5 Ml Cup) 5 ml PO Q6H PRN PRN Reason: Cough Last Admin: 09/10/21 20:33 Dose: 5 ml Documented by: Lactated Ringer's (Ringers, Lactated) 1,000 mls @ 999 mls/hr IV ASDIRECTED [facility] Last Admin: 09/07/21 18:28 Dose: 999 mls/hr Documented by: Remdesivir 100 mg/ Sodium (Chloride) 100 mls @ 100 mls/hr IV DAILY [facility] Stop: 09/12/21 09:59 Last Admin: 09/11/21 09:16 Dose: 100 mls/hr Documented by: Levofloxacin/Dextrose 750 mg/ (Premix) 150 mls @ 100 mls/hr IV Q24H [facility] Last Admin: 09/11/21 03:00 Dose: 100 mls/hr Documented by: Ibuprofen (Ibuprofen 200 Mg Tab) 200 mg PO Q4H PRN PRN Reason: Pain Last Admin: 09/09/21 17:30 Dose: 200 mg Documented by: Melatonin (Melatonin 3 Mg Tab) 6 mg PO BEDTIME PRN PRN Reason: Insomnia Last Admin: 09/10/21 22:00 Dose: 6 mg Documented by: Venlafaxine HCl (Venlafaxine 75 Mg Cap.Er) 150 mg PO DAILY [facility] Last Admin: 09/11/21 09:14 Dose: 150 mg Documented by: Discontinued Medications Furosemide (Furosemide 20 Mg Tab) 10 mg PO DAILY [facility] Remdesivir 200 mg/ Sodium (Chloride) 250 mls @ 250 mls/hr IV ONETIME ONE Stop: 09/08/21 01:26 Last Admin: 09/08/21 02:41 Dose: 250 mls/hr Documented by: Iopamidol (Iopamidol 755 Mg/Ml 500 Ml Multipack Bottle) 100 ml IVPUSH ONETIME ONE Stop: 09/07/21 20:53 Last Admin: 09/07/21 20:54 Dose: 100 ml Documented by: Venlafaxine HCl (Venlafaxine 75 Mg Cap.Er) 225 mg PO DAILY [facility]
== END 2021-09-11 16:00 | disposition home or self-care (01) | DRG 177 ==
LOC: MW.ED 17:10 → MW.MS 20:20
PROVIDERS: ADMIT Internal Medicine; ATTEND Internal Medicine
PROC: 8E0ZXY6 Isolation (ICD-10-PCS; principal; 2021-09-07)
PROC: XW033E5 Introduction of Remdesivir Anti-infective into Peripheral Vein, Percutaneous Approach, New Technology Group 5 (ICD-10-PCS; 2021-09-07)
PROC: 3E0333Z Introduction of Anti-inflammatory into Peripheral Vein, Percutaneous Approach (ICD-10-PCS; 2021-09-07)
DX: U07.1 COVID-19 (principal); J12.82 Pneumonia due to coronavirus disease 2019; I11.0 Hypertensive heart disease with heart failure; I50.9 Heart failure, unspecified; E78.5 Hyperlipidemia, unspecified; R09.02 Hypoxemia; H54.7 Unspecified visual loss; E78.00 Pure hypercholesterolemia, unspecified; I10 Essential (primary) hypertension; F32.9 Major depressive disorder, single episode, unspecified; F41.9 Anxiety disorder, unspecified; F17.210 Nicotine dependence, cigarettes, uncomplicated; Z79.899 Other long term (current) drug therapy
CPT/HCPCS: 36415 ×2; 71045; 71275; 80053; 84484; 85025; 86140; 99291; J7120; 84145; A9270-GY; J1650; J1956; J7050; J8540; Q9967; U0002

== ENCOUNTER 2023-01-07 17:36 | Emergency (ER) | payer MEDICARE ==
[2023-01-07 20:03] LABS: CORONAVIRUS COVID-19 NAA NEGATIVE (NEGATIVE); INFLUENZA A NAA NEGATIVE (NEGATIVE); INFLUENZA B NAA NEGATIVE (NEGATIVE); RESPIRATORY SYNCYTIAL VIR NAA NEGATIVE (NEGATIVE)
[2023-01-07 21:10] VITALS: BP 147/96; PULSE 70
== END 2023-01-07 21:09 | disposition home or self-care (01) ==
LOC: MW.ED 17:36
DX: J20.9 Acute bronchitis, unspecified (principal); K03.81 Cracked tooth; E78.00 Pure hypercholesterolemia, unspecified; I10 Essential (primary) hypertension; Z79.899 Other long term (current) drug therapy; Z20.822 Contact with and (suspected) exposure to COVID-19
CPT/HCPCS: 0241U; 87651; 99283

== ENCOUNTER 2024-06-11 18:45 | Emergency (ER) | payer MEDICARE ==
[2024-06-11] MEDS ORDERED: Sodium Chloride 0.9% 2.5 ML Syringe FLUSH PRN (19:15)
[2024-06-11] MEDS ORDERED: Sodium Chloride 0.9% 10 ML Syringe FLUSH PRN (19:15)
[2024-06-11 19:37] LABS: BASOPHILS ABSOLUTE AUTO 0.02 K/uL (0.00-0.20); BASOPHILS PERCENT AUTO 0.3 % (0.0-1.0); EOSINOPHILS ABSOLUTE AUTO 0.11 K/uL (0.00-0.45); EOSINOPHILS PERCENT AUTO 1.9 % (0.0-6.0); HEMATOCRIT 33.8 % (37.0-47.0); HEMOGLOBIN 11.3 g/dL (12.0-16.0); IMMATURE GRAN ABSOLUTE AUTO 0.01 K/uL (0.00-0.05); IMMATURE GRAN PERCENT AUTO 0.2 % (0.0-0.4); LYMPHOCYTES ABSOLUTE AUTO 0.96 K/uL (1.00-4.80); LYMPHOCYTES PERCENT AUTO 16.2 % (24.0-44.0); MEAN CORPUSCULAR HEMOGLOBIN 31.1 pg (28.0-32.0); MEAN CORPUSCULAR HGB CONC 33.4 g/dL (32.0-36.0); MEAN CORPUSCULAR VOLUME 93.1 fL (83.0-99.0); MEAN PLATELET VOLUME 9.9 fL (9.4-12.3); MONOCYTES ABSOLUTE AUTO 0.79 K/uL (0.00-0.80); MONOCYTES PERCENT AUTO 13.3 % (0.0-8.0); NEUTROPHILS ABSOLUTE AUTO 4.05 K/uL (1.80-7.70); NEUTROPHILS PERCENT AUTO 68.1 % (41.0-71.0); PLATELET COUNT,PLT 255 K/uL (150-400); RED BLOOD CELL COUNT 3.63 M/uL (4.10-5.30); WHITE BLOOD CELL COUNT,WBC 5.94 K/uL (3.9-11.3)
[2024-06-11 20:00] LABS: ALBUMIN 3.6 g/dL (3.4-5.0); BILIRUBIN TOTAL 0.4 mg/dL (0.2-1.0); CALCIUM 8.8 mg/dL (8.5-10.1); CREATININE 0.9 mg/dL (0.6-1.0); EST CRCL DRUG DOSING (CG) 57.37 mL/min; POTASSIUM,K 3.8 mmol/L (3.5-5.1); PROTEIN TOTAL,TP 7.3 g/dL (6.4-8.2); PTT,PARTIAL THROMBOPLSTIN TIME 29.3 SEC (23.9-30.7)
[2024-06-11] MEDS: Cefdinir 300 MG Cap PO ONE (22:14)
[2024-06-11 22:16] VITALS: BP 150/92; PULSE 65
== END 2024-06-11 22:19 | disposition home or self-care (01) ==
LOC: MW.ED 18:45
DX: S80.12XA Contusion of left lower leg, initial encounter (principal); L03.116 Cellulitis of left lower limb; I10 Essential (primary) hypertension; E78.00 Pure hypercholesterolemia, unspecified; Z91.048 Other nonmedicinal substance allergy status; Z79.899 Other long term (current) drug therapy; X50.9XXA Other and unspecified overexertion or strenuous movements or postures, initial encounter
CPT/HCPCS: 36415; 73590; 80053; 85025; 85610; 85730; 93971; 99284; A9270; 99283

== ENCOUNTER 2024-06-13 19:40 | Emergency (ER) | payer MEDICARE ==
[2024-06-13 20:33] VITALS: BP 147/90; PULSE 74
== END 2024-06-13 20:30 | disposition home or self-care (01) ==
LOC: MW.ED 19:40
DX: S80.822A Blister (nonthermal), left lower leg, initial encounter (principal); S80.12XA Contusion of left lower leg, initial encounter; I11.0 Hypertensive heart disease with heart failure; I50.9 Heart failure, unspecified; E78.00 Pure hypercholesterolemia, unspecified; F17.210 Nicotine dependence, cigarettes, uncomplicated; Z79.899 Other long term (current) drug therapy; Z86.16 Personal history of COVID-19; Z75.8 Other problems related to medical facilities and other health care; Z91.048 Other nonmedicinal substance allergy status; W19.XXXA Unspecified fall, initial encounter
CPT/HCPCS: 99283

== ENCOUNTER 2024-07-13 17:07 | Emergency (ER) | payer MEDICARE | END 2024-07-13 18:37 | disposition left against medical advice (07) | LOC: MW.ED 17:07 | DX: Z53.21 Procedure and treatment not carried out due to patient leaving prior to being seen by health care provider (principal) ==